=== PATIENT | female | born 1995 | race Caucasian/White ===

== ENCOUNTER → 2017-01-22 | Outpatient (CLI) | payer BC, MEDICAID ==
[~2017-01-22] MED LIST: SULF1TAB38 PO
--- NOTE | 2017-01-22 14:20 | Diagnostic Imaging Report ---
INDICATION: Size and dates. TECHNIQUE: Multiple real-time grayscale images were obtained over the gravid uterus. COMPARISON: None FINDINGS: There is a single living intrauterine in transverse presentation. The biometry correlates with a gestational age of 19 weeks 4 days. The placenta is anterior. There is no previa. The spine and cord insertion were not well visualized. The remainder of the anatomical survey is unremarkable. There is a normal volume of amniotic fluid. IMPRESSION: 1. Single living intrauterine with sonographically estimated gestational age of 19 weeks 4 days and estimated date of confinement of June 14, 2017. 2. Limited evaluation of the spine and cord insertion due to lie. Biometrical measurements are as follows: Biparietal 4.15 cm, age 18 weeks 5 days. Head circumference 16.83 cm, age 19 weeks 4 days. Abdominal circumference 14.23 cm, age 19 weeks 5 days. Femur length 3.13 cm, age 19 weeks 6 days. Sonographic estimate age: 19 weeks 4 days. Sonographic estimated date of delivery: 06/14/17. Estimated Weight: 302 gm (+/- 44 gm). LMP percentile: 09/06/17%. heart rate: 146 beats per minute. number: 1 of 1. Dictated by: Dictated on workstation # [id number]
== END ==
LOC: RAD 12:54
PROVIDERS: ATTEND Obstetrics & Gynecology
DX: Z36 Encounter for antenatal screening of mother (principal); Z3A.19 19 weeks gestation of pregnancy
CPT/HCPCS: 76805

== ENCOUNTER 2017-05-29 10:26 | Inpatient (IN) | payer BC, MEDICAID ==
[~2017-05-29] VITALS: Ht 154.9 cm; Wt 63.1 kg
[2017-05-29] VITALS (34 sets, daily range): BP systolic 107–156; BP diastolic 0–113
[2017-05-29] MEDS ORDERED: D5 LR IV SOLUTION 1,000 ML IV ONE (10:29)
[2017-05-29] MEDS ORDERED: D5 LR IV SOLUTION 1,000 ML IV SCH (10:33)
--- OUTSIDE RECORDS SUMMARY | 2017-05-29 10:36 | XMS REPORT ---
Author Author SEKOU TODD Organization [employer] Address Unknown Phone Unavailable Care Team Providers Care Glass Blower Helper Name Role Phone SEKOU TODD CP Unavailable Allergies, Adverse Reactions, Alerts Substance Reaction Event Type N.K.D.A. 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 Problem General counseling for initiation of other contraceptive measures V25.02 Active Problem Counseling on other sexually transmitted diseases V65.45 Active Problem Unspecified contraceptive management V25.9 Active Problem Acute sinusitis, unspecified 461.9 Active Medications Medication Code System Code Instructions Start Date End Date Status Dosage Flonase Allergy Relief [facility] [address]-78 50 MCG/ACT Nasally 2 times a day Jun 22, 2015 1 spray in each nostril Zyrtec Allergy [facility] [address]-02 10 MG Orally Once a day Jun 22, 2015 August 21, 2015 1 tablet Patanol [facility] [address]-26 0.1 % Ophthalmic Twice a day Jun 22, 2015 1 drop into affected eye Procedures Procedure Coding System Code Date Office Visit, Est Pt., Level 3 CPT-4 45031 Jun 22, 2015 Vital Signs Date/Time: Jun 22, 2015 Temperature 97.7 F Weight 103.9 lbs Height 62 in BMI 19.00 Index Blood Pressure Diastolic 72 mmHg Blood Pressure Systolic 108 mmHg Cardiac Monitoring Heart Rate 77 bpm BMIPercentile 17.75 % Wt Percentile 8.79 % Results No Known Results Summary Purpose [employer] Submission
--- OUTSIDE RECORDS SUMMARY | 2017-05-29 10:36 | XMS REPORT | Continuity of Care Document ---
Author Author [facility] Address Unknown Phone Unavailable Allergies There is no data. Medications There is no data. Problems Date Dx Coded Attending Type Code Diagnosis Diagnosed By 03/22/2010 CATINA LIRIANO DO V70.3 visit for: examination for sports competition 03/22/2010 CATINA LIRIANO DO V70.3 visit for: examination for sports competition 03/22/2010 MOHIT BLANCO APRN V70.3 visit for: examination for sports competition 03/22/2010 CATINA LIRIANO DO V70.3 visit for: examination for sports competition 03/22/2010 CATINA LIRIANO DO V70.3 visit for: examination for sports competition 03/22/2010 CATINA LIRIANO DO V70.3 visit for: examination for sports competition 03/22/2010 V70.3 visit for: examination for sports competition 03/22/2010 V70.3 visit for: examination for sports competition 03/22/2010 CATINA LIRIANO DO V70.3 visit for: examination for sports competition 03/22/2010 CATINA LIRIANO DO V70.3 visit for: examination for sports competition 04/26/2010 CATINA LIRIANO DO V03.89 MENINGOCOCCAL VACCINE 04/26/2010 CATINA LIRIANO DO V05.3 HEPATITIS A VACCINE 04/26/2010 CATINA ILRIANO DO V05.8 Need For Vaccination Human Papilloma Virus 04/26/2010 CATINA LIRIANO DO V06.5 DT, TETANUS-DIPHTHERIA [Td] ,TDAP 04/26/2010 CATINA LIRIANO DO V03.89 MENINGOCOCCAL VACCINE 04/26/2010 CATINA LIRIANO DO V05.3 HEPATITIS A VACCINE 04/26/2010 CATINA LIRIANO DO V05.8 Need For Vaccination Human Papilloma Virus 04/26/2010 CATINA LIRIANO DO V06.5 DT, TETANUS-DIPHTHERIA [Td] ,TDAP 04/26/2010 MOHIT BLANCO APRN V03.89 MENINGOCOCCAL VACCINE 04/26/2010 BELLA DE LA PAZNMOHIT L V05.3 HEPATITIS A VACCINE 04/26/2010 BELLA DE LA PAZNMOHIT L V05.8 Need For Vaccination Human Papilloma Virus 04/26/2010 MOHIT BLANCO APRN V06.5 DT, TETANUS-DIPHTHERIA [Td] ,TDAP 04/26/2010 CATINA LIRIANO DO V03.89 MENINGOCOCCAL VACCINE 04/26/2010 CATINA LIRIANO DO V05.3 HEPATITIS A VACCINE 04/26/2010 CATINA LIRIANO DO V05.8 Need For Vaccination Human Papilloma Virus 04/26/2010 CATINA LIRIANO DO V06.5 DT, TETANUS-DIPHTHERIA [Td] ,TDAP 04/26/2010 CATINA LIRIANO DO V03.89 MENINGOCOCCAL VACCINE 04/26/2010 CATINA LIRIANO DO V05.3 HEPATITIS A VACCINE 04/26/2010 CATINA LIRIANO DO V05.8 Need For Vaccination Human Papilloma Virus 04/26/2010 CATINA LIRIANO DO V06.5 DT, TETANUS-DIPHTHERIA [Td] ,TDAP 04/26/2010 CATINA LIRIANO DO V03.89 MENINGOCOCCAL VACCINE 04/26/2010 CATINA LIRIANO DO V05.3 HEPATITIS A VACCINE 04/26/2010 CATINA LIRIANO DO V05.8 Need For Vaccination Human Papilloma Virus 04/26/2010 CATINA LIRIANO DO V06.5 DT, TETANUS-DIPHTHERIA [Td] ,TDAP 04/26/2010 V03.89 MENINGOCOCCAL VACCINE 04/26/2010 V05.3 HEPATITIS A VACCINE 04/26/2010 V05.8 Need For Vaccination Human Papilloma Virus 04/26/2010 V06.5 DT, TETANUS- DIPHTHERIA [Td] ,TDAP 04/26/2010 V03.89 MENINGOCOCCAL VACCINE 04/26/2010 V05.3 HEPATITIS A VACCINE 04/26/2010 V05.8 Need For Vaccination Human Papilloma Virus 04/26/2010 V06.5 DT, TETANUS- DIPHTHERIA [Td] ,TDAP 04/26/2010 CATINA LIRIANO DO V03.89 MENINGOCOCCAL VACCINE 04/26/2010 LIRIANO DO, CATINA K V05.3 HEPATITIS A VACCINE 04/26/2010 DEANDRA DREW CATINA K V05.8 Need For Vaccination Human Papilloma Virus 04/26/2010 TIA LIRIANO DOA K V06.5 DT, TETANUS-DIPHTHERIA [Td] ,TDAP 04/26/2010 DEANDRA DREW CATINA K V03.89 MENINGOCOCCAL VACCINE 04/26/2010 DEANDRA DREW CATINA K V05.3 HEPATITIS A VACCINE 04/26/2010 DEANDRA DREW CATINA K V05.8 Need For Vaccination Human Papilloma Virus 04/26/2010 DEANDRA DREW CATINA K V06.5 DT, TETANUS-DIPHTHERIA [Td] ,TDAP 10/24/2010 DEANDRA DREW CATINA K V20.2 visit for: well child visit 10/24/2010 TIA LIRIANO DOA K V20.2 visit for: well child visit 10/24/2010 MOHIT BLANCO APRN V20.2 visit for: well child visit 10/24/2010 CATINA LIRIANO DO K V20.2 visit for: well child visit 10/24/2010 CATINA LIRIANO DO K V20.2 visit for: well child visit 10/24/2010 TIA LIRIANO DOA K V20.2 visit for: well child visit 10/24/2010 V20.2 visit for: well child visit 10/24/2010 V20.2 visit for: well child visit 10/24/2010 TIA LIRIANO DOA K V20.2 visit for: well child visit 10/24/2010 DEANDRA DREW CATINA K V20.2 visit for: well child visit 01/12/2011 DEANDRA DREW CATINA K 372.30 CONJUNCTIVITIS UNSPECIFIED 01/12/2011 DEANDRA DREW CATINA K 372.30 CONJUNCTIVITIS UNSPECIFIED 01/12/2011 MOHIT BLANCO APRN 372.30 CONJUNCTIVITIS UNSPECIFIED 01/12/2011 LIRIANO DO, CATINA K 372.30 CONJUNCTIVITIS UNSPECIFIED 01/12/2011 DEANDRA DREW, CATINA K 372.30 CONJUNCTIVITIS UNSPECIFIED 01/12/2011 LIRIANO DO, CATINA K 372.30 CONJUNCTIVITIS UNSPECIFIED 01/12/2011 372.30 CONJUNCTIVITIS UNSPECIFIED 01/12/2011 372.30 CONJUNCTIVITIS UNSPECIFIED 01/12/2011 DEANDRA DREW CATINA K 372.30 CONJUNCTIVITIS UNSPECIFIED 01/12/2011 LIRIANO DO, CATINA K 372.30 CONJUNCTIVITIS UNSPECIFIED 09/18/2011 CATINA LIRIANO DO K V25.02 CONTRACEPTION - ANY METHOD 09/18/2011 CATINA LIRIANO DO V65.45 STD COUNSELING 09/18/2011 CATINA LIRIANO DO K V25.02 CONTRACEPTION - ANY METHOD 09/18/2011 CATINA LIRIANO DO K V65.45 STD COUNSELING 09/18/2011 MOHIT BLANCO APRN V25.02 Contraceptives 09/18/2011 MOHIT BLANCO APRN V65.45 Anticipatory Guidance: Unsafe Sexual Practices 09/18/2011 CATINA LIRIANO DO K V25.02 Contraceptives 09/18/2011 CATINA LIRIANO DO K V65.45 Anticipatory Guidance: Unsafe Sexual Practices 09/18/2011 CATINA LIRIANO DO K V25.02 Contraceptives 09/18/2011 CATINA LIRIANO DO K V65.45 Anticipatory Guidance: Unsafe Sexual Practices 09/18/2011 CATINA LIRIANO DO K V25.02 Contraceptives 09/18/2011 CATINA LIRIANO DO V65.45 Anticipatory Guidance: Unsafe Sexual Practices 09/18/2011 V25.02 Contraceptives 09/18/2011 V65.45 Anticipatory Guidance: Unsafe Sexual Practices 09/18/2011 V25.02 Contraceptives 09/18/2011 V65.45 Anticipatory Guidance: Unsafe Sexual Practices 09/18/2011 CATINA LIRIANO DO K V25.02 Contraceptives 09/18/2011 CATINA LIRIANO DO K V65.45 Anticipatory Guidance: Unsafe Sexual Practices 09/18/2011 CATINA LIRIANO DO K V25.02 Contraceptives 09/18/2011 CATINA LIRIANO DO V65.45 Anticipatory Guidance: Unsafe Sexual Practices 06/17/2013 CATINA LIRIANO DO 461.9 SINUSITIS ACUTE 06/17/2013 MOHIT BLANCO APRN 461.9 SINUSITIS ACUTE 06/17/2013 CATINA LIRIANO DO 461.9 SINUSITIS ACUTE 06/17/2013 CATINA LIRIANO DO 461.9 SINUSITIS ACUTE 06/17/2013 LIRIANO CATINA DREW K 461.9 SINUSITIS ACUTE 06/17/2013 461.9 SINUSITIS ACUTE 06/17/2013 461.9 SINUSITIS ACUTE 06/17/2013 CATINA LIRIANO DO 461.9 SINUSITIS ACUTE 06/17/2013 CATINA LIRIANO DO 461.9 SINUSITIS ACUTE 06/25/2013 MOHIT BLANCO APRN V04.89 GARDASIL (HPV) DX 06/25/2013 CATINA LIRIANO DO V04.89 GARDASIL (HPV) DX 06/25/2013 LIRIANO CATINA DREW V04.89 GARDASIL (HPV) DX 06/25/2013 LIRIANO CATINA DREW V04.89 GARDASIL (HPV) DX 06/25/2013 V04.89 GARDASIL (HPV ) DX 06/25/2013 V04.89 GARDASIL (HPV ) DX 06/25/2013 CATINA LIRIANO DO V04.89 GARDASIL (HPV) DX 06/25/2013 CATINA LIRIANO DO V04.89 GARDASIL (HPV) DX 10/30/2013 CATINA LIRAINO DO 692.2 CONTACT DERMATITIS AND OTHER ECZEMA DUE TO SOLVENTS 10/30/2013 692.2 CONTACT DERMATITIS AND OTHER ECZEMA DUE TO SOLVENTS 10/30/2013 692.2 CONTACT DERMATITIS AND OTHER ECZEMA DUE TO SOLVENTS 10/30/2013 CATINA LIRIANO DO 692.2 CONTACT DERMATITIS AND OTHER ECZEMA DUE TO SOLVENTS 10/30/2013 CATINA LIRIANO DO 692.2 CONTACT DERMATITIS AND OTHER ECZEMA DUE TO SOLVENTS 02/02/2014 V74.1 TB SCREENING 02/02/2014 V74.1 TB SCREENING 02/02/2014 CATINA LIRIANO DO V74.1 TB SCREENING 02/02/2014 CATINA LIRIANO DO V74.1 TB SCREENING 03/10/2014 CATINA LIRIANO DO V04.81 FLU SHOT 03/10/2014 CATINA LIRIANO DO V25.9 UNSPECIFIED CONTRACEPTIVE MANAGEMENT 03/10/2014 CATINA LIRIANO DO V04.81 FLU SHOT 03/10/2014 CATINA LIRIANO DO V25.9 UNSPECIFIED CONTRACEPTIVE MANAGEMENT Procedures Code [place] [address] TEST, URINE (IN- HOUSE) 06/25/2013 J1050 DEPO PROVERA 06/25/2013 73431 THERAPUTIC INJ SQ/IM 06/25/2013 87192 THERAPUTIC INJ SQ/IM 09/17/2013 J1050 DEPO PROVERA 09/17/2013 78326 TEST, URINE (IN- HOUSE) 09/17/2013 71545 STREP A (IN-HOUSE) 10/30/2013 20505 TB TEST INTRADERMAL 02/08/2014 62452 TB TEST INTRADERMAL 02/16/2014 79540 THERAPUTIC INJ SQ/IM 03/10/2014 J1050 DEPO PROVERA 03/10/2014 92971 TEST, URINE (IN- HOUSE) 03/10/2014 96981 THERAPUTIC INJ SQ/IM 07/07/2014 J1050 DEPO PROVERA 07/07/2014 51722 TEST, URINE (IN- HOUSE) 07/07/2014 Results There is no data. Encounters ACCT No. Visit Date/Time Discharge Status Pt. Type Provider Facility Loc./Unit Complaint [id number] 07/07/2014 15:14:00 07/07/2014 23:59:59 CLS Outpatient CATINA LIRIANO DO [id number] 03/10/2014 13:42:00 03/10/2014 23:59:59 CLS Outpatient CATINA LIRIANO DO [id number] 02/09/2014 14:10:00 02/09/2014 23:59:59 CLS Outpatient [id number] 02/02/2014 18:14:00 02/02/2014 23:59:59 CLS Outpatient [id number] 10/30/2013 08:16:00 10/30/2013 23:59:59 CLS Outpatient CATINA LIRIANO DO [id number] 09/17/2013 08:37:00 09/17/2013 23:59:59 CLS Outpatient CATINA LIRIANO DO [id number] 09/08/2013 10:10:00 09/08/2013 23:59:59 CLS Outpatient CATINA LIRIANO DO [id number] 06/25/2013 15:10:00 06/25/2013 23:59:59 CLS Outpatient MOHIT BLANCO APRN Aly [id number] 06/17/2013 09:46:00 06/17/2013 23:59:59 CLS Outpatient CATINA LIRIANO DO [id number] 04/07/2013 13:56:00 04/07/2013 23:59:59 CLS Outpatient CATINA LIRIANO DO
--- OUTSIDE RECORDS SUMMARY | 2017-05-29 10:36 | XMS REPORT ---
Author Author MARY ALVAREZ [facility] Address [address] [place] [address] Care Team Providers Care Healthcare Facility Administrator Name Role Phone MARY ALVAREZ Unavailable PROBLEMS Type Condition ICD9-CM Code KYU02-HG Code Onset Dates Condition Status SNOMED Code Assessment Acute mucoid otitis media of right ear H65.111 Jan, Active [id number] Assessment Allergic rhinitis, unspecified allergic rhinitis trigger, unspecified rhinitis seasonality J30.9 Jan, Active [id number] ALLERGIES Substance Reaction Event Type Date Status N.K.D.A. Unknown Non Drug Allergy Jan, Unknown SOCIAL HISTORY No smoking Hx information available PLAN OF CARE VITAL SIGNS Height 62 in 2016-02-13 Weight 100.3 lbs 2016-02-13 Heart Rate 98 bpm 2016-02-13 Respiratory Rate 18 2016-02-13 BMI 18.34 kg/m2 2016-02-13 Blood pressure systolic 98 mmHg 2016-02-13 Blood pressure diastolic 60 mmHg 2016-02-13 MEDICATIONS Medication Instructions Dosage Frequency Start Date End Date Duration Status Augmentin 875-125 MG Orally every 12 hrs 1 tablet 12h Jan,Jan 10 day(s) Active Cetirizine HCl 10 mg 1 tablet Jan, Active RESULTS No Results PROCEDURES Procedure Date Ordered Related Diagnosis Body Site Office Visit, Est Pt., Level 3 Feb 13, 2016 IMMUNIZATIONS No Known Immunizations
--- NOTE | 2017-05-29 10:39 | History & Physical-OB ---
OB - Chief Complaint & HPI Date/Time Date of Admission: Date of Admission: May 29, 2017 at 10:26 Time Seen by Provider: 10:35 Chief Complaint/History OB-Reason for Admission/Chief: Onset of Labor Hx : 1 Hx Para: 0 Expected Date of Delivery: Jun 13, 2017 Gestational Age in Weeks: 37 Gestational Age in Days: 6 Admission Nurse Assessment Rev: Yes History of Labs A pos Antibody neg RI RPR NR HBsAg NR HIV NR GC neg GBS neg Allergies and Home Medications Allergies Coded Allergies: No Known Drug Allergies (Unverified , 08/23/12) Home Medications Trimethoprim/Sulfamethoxazole 1 Ea Tablet, 1 EA PO BID, #20 FOR INFECTION Prescribed by: FREDDIE MITCHELL on 08/23/12 1529 OB - History Hx of Present Care: Yes Ultrasounds: Normal mid trimester US Obstetrical Complications: None Medical Complications: None Patient Past Medical History n/a Immunizations Tetanus Booster (TDap): Less than 5yrs OB - Admission Exam Physical Exam HEENT: NCAT Heart: Rhythm Normal Lungs: Clear Abdomen: Gravid Extremities: Normal Reflexes: Normal Cervical Dilatation: 6cm Effacement: 75% Station: -1 Membranes: Intact Heart Rate: 130's Accelerations: Accelerations Present Decelerations: No Decelerations Short Term Variability: Present Half-Way Variability: Average (6-25) Contractions on Admission: 6-10 Minutes Apart Intensity: Firm OB - Assessment/Plan/Diagnosis Assessment Assessment: active labor Plan Plan: Expectant Management Other Plan Expectant management, patient to have epidural at request. Discharge Diagnosis Diagnosis: 22 yo @ 37.6 Active labor GBS neg MARIA FERNANDA BLAIR DO May 29, 2017 10:39
[2017-05-29] MEDS ORDERED: LACTATED RINGERS 1,000 ML IV ONE (10:54)
[2017-05-29 11:06] LABS: BASOPHILS % (AUTO) 0 % (0-10); EOSINOPHILS # (AUTO) 0.1 10^3/uL (0.0-0.3); EOSINOPHILS % (AUTO) 1 % (0-10); HEMATOCRIT 42 % (35-52); HEMOGLOBIN 14.2 G/DL (11.5-16.0); LYMPHOCYTES # (AUTO) 2.2 X 10^3 (1.0-4.0); LYMPHOCYTES % (AUTO) 20 % (12-44); MEAN CORPUSCULAR HEMOGLOBIN 31 PG (25-34); MEAN CORPUSCULAR HGB CONC 34 G/DL (32-36); MEAN CORPUSCULAR VOLUME 90 FL (80-99); MEAN PLATELET VOLUME 11.1 FL (7.4-10.4); MONOCYTES # (AUTO) 0.6 X 10^3 (0.0-1.0); MONOCYTES % (AUTO) 6 % (0-12); NEUTROPHILS % (AUTO) 73 % (42-75); PLATELET COUNT 265 10^3/uL (130-400); RED BLOOD COUNT 4.65 10^6/uL (4.35-5.85); RED CELL DISTRIBUTION WIDTH 12.8 % (10.0-14.5); WHITE BLOOD COUNT 10.9 10^3/uL (4.3-11.0)
[2017-05-29] MEDS ORDERED: SUFENTA 0.6MCG/ML BUPIVA 0.125 100 ML ONE ×2 (11:35→12:19)
[2017-05-29] MEDS ORDERED: LACTATED RINGERS 1,000 ML IV SCH (12:11)
[2017-05-29] MEDS ORDERED: diphenhydrAMINE 50 MG/ML INJ (BENADRYL) IV PRN (12:15)
[2017-05-29] MEDS ORDERED: METOCLOPRAMIDE INJ 10 MG/2 ML (REGLAN) IV PRN (12:15)
[2017-05-29] MEDS ORDERED: NALOXONE 0.4 MG/ML 1 ML (NARCAN) VIAL IV PRN ×2 (12:15)
[2017-05-29] MEDS ORDERED: EPIDURAL (SUFENTA 0.6MCG/ML BUPIVA 0.125%) 100 ML BAG EPI SCH (12:15)
[2017-05-29] MEDS ORDERED: ONDANSETRON 4 MG/2 ML (SDV) Z0FRAN IV PRN (12:15)
[2017-05-29] MEDS ORDERED: LIDOCAINE/EPI 2% 1:200,00 (XYLOCAINE) 10 ML VIAL ONE (13:57)
[2017-05-29] MEDS ORDERED: MINERAL OIL CONCENTRATE 99.9% 15 ML UDC ONE (13:57)
[2017-05-29] MEDS ORDERED: CATHETER FLUSH 10 ML SYR IV SCH ×2 (14:00→22:00)
[2017-05-29] MEDS ORDERED: OXYTOCIN/NORMAL SALINE 1,000 ML IV ONE (14:19)
[2017-05-29] MEDS: OXYTOCIN/NORMAL SALINE 500 ML IV SCH ×2 (14:35→15:14)
[2017-05-29] MEDS ORDERED: MEPIVACAINE (CARBOCAINE) 2% 20 ML VIAL ONE (15:10)
[2017-05-29] MEDS ORDERED: MEASLES,MUMPS,RUBELLA 1 EA INJ SQ ONE (15:30)
[2017-05-29] MEDS ORDERED: TETANUS,DIPTH,PERTUSS P/F (BOOSTRIX) 0.5 ML VIAL IM ONE (15:30)
[2017-05-29] MEDS ORDERED: DIBUCAINE (NUPERCAINAL) 1% OINT 30 GM TOP PRN (15:30)
[2017-05-29] MEDS ORDERED: BENZOCAINE/MENTHOL (DERMOPLAST) 56 ML CAN TP PRN (15:30)
[2017-05-29] MEDS ORDERED: WITCH HAZEL(TUCKS) 40 EA JAR TOP PRN (15:30)
--- NOTE | 2017-05-29 15:36 | OB Labor & Delivery Record ---
L&D History Date of Service Date of Service: May 29, 2017 History Expected Date of Delivery: Jun 13, 2017 Gestational Age in Weeks: 37 Hx : 1 Hx Para: 0 Complications Events: Routine care Operative Indications (Cesarea: N/A-Vaginal Delivery Intrapartal Events: None L&D Stage1 Stage One Onset of Labor - Date: May 29, 2017 Monitors and Tracing Monitor Mode: Internal Heart Rate: 140 Monitor Accelerations: Uniform Monitor Decelerations: Variable Station: -2 Residential Variability: Moderate (11-25) Short Term Variability: Present Presentation: Vertex Rupture of Membranes Spontaneous Ruture of Membrane: No Amniotic Membrane Rupture Time: 12:45 Amniotic Membrane Fluid Desc.: Clear Amniotic Fluid Membrane Tests: Nitrazine Positive Vaginal Bleeding Description: Normal Show Induction/Anesthesia Epidural Cath Placement - Time: 11:30 L&D Stage2 Stage Two Stage II Date: May 29, 2017 Monitors and Tracing Monitor Mode: External Heart Rate: 130 Monitor Decelerations: Variable Ice Plant Operator Variability: Minimal (3-5) Short Term Variability: Present Position: Right Occiput Anterior Presentation: Vertex Cord Descript/Complications Cord Vessel Description: 3 Vessels Delivery Type Infant Delivery Method: Spontaneous Vaginal Episiotomy/Perineal Laceration Laceraction(s)/Extensions: Yes Episiotomy Description: Right Mediolateral (RML repaired using 3-0 and 2-0 vicryl suture in usual fashion) Condition of Infant Delivery 1 minute Comment: 8 5 minute Comment: 8 Notes Live female infant weight 4lbs 5 oz Condition of Infant Condition of Infant: Living Exam: No Observed Abnormalities Resuscitation Resuscitation: N/A - Spontaneous Resp L&D Stage3 Stage Three Stage III Date: May 29, 2017 Pictocin Pitocin Administration Comment: wide open 2 30mu bags if iv pitocin given at delivery of placenta Placenta Delivery Placenta Delivery: Spontaneous Delivery Summary Summary Estimated blood loss (mL): 250 250 ml Attending at delivery: Maria Fernanda Blair DO Condition of Delivery Examined: Cervix Examined, Uterus Explored Post Hemorrhage: No Condition of Mother stable Condition of Infant (s) stable MARIA FERNANDA BLAIR DO May 29, 2017 15:36
[2017-05-29] MEDS: IBUPROFEN 600 MG (MOTRIN) TAB PO SCH ×2 (17:10→23:30)
[2017-05-29] MEDS: DOCUSATE SODIUM 100 MG (COLACE) CAP PO SCH (21:28)
[2017-05-29] MEDS: HYDROcodone/APAP 5 MG/325 MG (LORTAB) TAB PO PRN (21:49)
[2017-05-30] VITALS: BP 131/84
[2017-05-30] MEDS: HYDROcodone/APAP 5 MG/325 MG (LORTAB) TAB PO PRN ×4 (03:50→21:26)
[2017-05-30 03:56] VITALS: BP 113/76
[2017-05-30] MEDS: IBUPROFEN 600 MG (MOTRIN) TAB PO SCH ×3 (05:45→18:30)
[2017-05-30 06:14] LABS: BASOPHILS % (AUTO) 0 % (0-10); EOSINOPHILS # (AUTO) 0.2 10^3/uL (0.0-0.3); EOSINOPHILS % (AUTO) 1 % (0-10); HEMATOCRIT 36 % (35-52); HEMOGLOBIN 12.1 G/DL (11.5-16.0); LYMPHOCYTES # (AUTO) 3.1 X 10^3 (1.0-4.0); LYMPHOCYTES % (AUTO) 26 % (12-44); MEAN CORPUSCULAR HEMOGLOBIN 31 PG (25-34); MEAN CORPUSCULAR HGB CONC 34 G/DL (32-36); MEAN CORPUSCULAR VOLUME 92 FL (80-99); MEAN PLATELET VOLUME 11.3 FL (7.4-10.4); MONOCYTES # (AUTO) 0.6 X 10^3 (0.0-1.0); MONOCYTES % (AUTO) 5 % (0-12); NEUTROPHILS # (AUTO) 8.1 X 10^3 (1.8-7.8); NEUTROPHILS % (AUTO) 67 % (42-75); PLATELET COUNT 185 10^3/uL (130-400); RED BLOOD COUNT 3.93 10^6/uL (4.35-5.85); RED CELL DISTRIBUTION WIDTH 12.5 % (10.0-14.5)
[2017-05-30] MEDS ORDERED: PRENATAL VITAMIN 1 EA TAB PO SCH (07:00)
--- NOTE | 2017-05-30 08:31 | Discharge Inst-Women's Service ---
Discharge Inst-Women's Serv Depart Medication/Instructions New, Converted or Re-Newed RX: RX on Chart Consults/Follow Up Additional Follow Up: Yes Orders/Referrals Dr. Blair in 6 weeks Activity Activity: Activity as Tolerated Driving Instructions: No Driving for 1 Week NO SMOKING: NO SMOKING Nothing Inside Vagina: No Douching, No Gallant, No Tampons Diet Discharge Diet: No Restrictions Symptoms to Report to : Bleeding Excessive, Pain Increased, Fever Over 101 Degrees F, Vaginal Bleeding Increase, Questions/Concerns For Any Problems or Questions: Contact Your Physician Skin/Wound Care Bathing Instructions: Shower (x 2 weeks for sitz baths) MARIA FERNANDA BLAIR DO May 30, 2017 8:31 am
[2017-05-30] MEDS ORDERED: FERR-74 PO (08:33)
[2017-05-30] MEDS ORDERED: Benzocaine/Menthol TP (08:33)
[2017-05-30] MEDS ORDERED: IBUP-1773 PO (08:33)
[2017-05-30] MEDS ORDERED: ACHD5005 PO (08:33)
[2017-05-30] MEDS ORDERED: DOCU100C37 PO (08:33)
[2017-05-30 09:56] VITALS: BP 129/87
[2017-05-30] MEDS: FERROUS SULF 325 MG (IRON) TAB PO SCH (09:56)
[2017-05-30] MEDS: DOCUSATE SODIUM 100 MG (COLACE) CAP PO SCH ×2 (09:56→21:25)
--- NOTE | 2017-05-30 14:34 | Anesthesia-Regional Post-Op ---
Regional Patient Condition Mental Status: Alert, Oriented x3 Circulation: Same as Pre-Op Headache: Absent Sensation: Full Recovery Motor Block: Absent Post Op Complications Complications None Follow Up Care/Instructions Patient Instructions None needed. Anesthesia/Patient Condition Patient is doing well, no complaints, stable vital signs, no apparent adverse anesthesia problems. No complications reported per nursing. GENNA BEAVERS CRNA May 30, 2017 14:34
[2017-05-30 15:30] VITALS: BP 115/2
[2017-05-30] MEDS ORDERED: INFLUENZA TRIvalent 2017-2018 0.5 ML/45 MCG SYR IM ONE (17:30)
--- NOTE | 2017-05-30 18:32 | Progress Note-Standard ---
Standard Progress Note Progress Notes/Assess & Plan Date Seen by Provider: May 30, 2017 Time Seen by Provider: 07:30 Progress/Assessment & Plan Patient doing well, no concerns voiced. Pain well controlled, ambulating and voiding freely. Vital Sign - Last 24 Hours 05/29/17 05/30/17 05/30/17 05/30/17 20:00 00:00 03:56 09:56 Temp 98.0 98.0 98.0 97.9 Pulse 73 86 70 102 Resp 18 18 16 18 B/P (MAP) 125/78 (94) 131/84 (100) 113/76 (88) 129/87 (101) Pulse Ox 98 O2 Delivery Room Air Room Air Room Air Room Air 05/30/17 15:30 Temp 97.7 Pulse 90 Resp 18 B/P (MAP) 115/2 (39) Pulse Ox 98 O2 Delivery Room Air Intake and Output 05/29/17 05/29/17 05/30/17 15:00 23:00 07:00 Intake Total 250 ml Balance 250 ml Uterine fundus firm and palpated below umbilicus Laboratory Tests Test 05/30/17 05:35 Range/Units White Blood Count 12.0 H 4.3-11.0 10^3/uL Red Blood Count 3.93 L 4.35-5.85 10^6/uL Hemoglobin 12.1 11.5-16.0 G/DL Hematocrit 36 35-52 % Mean Corpuscular Volume 92 80-99 FL Mean Corpuscular Hemoglobin 31 25-34 PG Mean Corpuscular Hemoglobin Concent 34 32-36 G/DL Red Cell Distribution Width 12.5 10.0-14.5 % Platelet Count 185 130-400 10^3/uL Mean Platelet Volume 11.3 H 7.4-10.4 FL Neutrophils (%) (Auto) 67 42-75 % Lymphocytes (%) (Auto) 26 12-44 % Monocytes (%) (Auto) 5 0-12 % Eosinophils (%) (Auto) 1 0-10 % Basophils (%) (Auto) 0 0-10 % Neutrophils # (Auto) 8.1 H 1.8-7.8 X 10^3 Lymphocytes # (Auto) 3.1 1.0-4.0 X 10^3 Monocytes # (Auto) 0.6 0.0-1.0 X 10^3 Eosinophils # (Auto) 0.2 0.0-0.3 10^3/uL Basophils # (Auto) 0.0 0.0-0.1 10^3/uL Diagnosis: PPD 1 NVD P: Anticipate dc tomorrow Continue routine pp care MARIA FERNANDA BLAIR DO May 30, 2017 6:32 pm
[2017-05-30 21:15] VITALS: BP 116/77
[2017-05-31 02:35] VITALS: BP 109/69
[2017-05-31] MEDS: IBUPROFEN 600 MG (MOTRIN) TAB PO SCH ×3 (02:42→17:17)
[2017-05-31] MEDS: HYDROcodone/APAP 5 MG/325 MG (LORTAB) TAB PO PRN ×3 (02:43→17:17)
[2017-05-31 09:13] VITALS: BP 126/82
[2017-05-31] MEDS: FERROUS SULF 325 MG (IRON) TAB PO SCH (09:13)
[2017-05-31] MEDS: DOCUSATE SODIUM 100 MG (COLACE) CAP PO SCH (09:13)
--- NOTE | 2017-05-31 09:18 | Progress Note-Standard ---
Standard Progress Note Progress Notes/Assess & Plan Date Seen by Provider: May 31, 2017 Time Seen by Provider: 08:35 Progress/Assessment & Plan Patient doing well, no concerns voiced. Pain well controlled, ambulating and voiding freely. Vital Sign - Last 24 Hours 05/30/17 05/30/17 05/30/17 05/31/17 09:56 15:30 21:15 02:35 Temp 97.9 97.7 98.4 97.6 Pulse 102 90 95 87 Resp 18 18 16 B/P (MAP) 129/87 (101) 115/2 (39) 116/77 (90) 109/69 (82) Pulse Ox 98 98 99 98 O2 Delivery Room Air Room Air Room Air Room Air Uterine fundus firm and palpated below umbilicus Laboratory Tests Test 05/30/17 05:35 Range/Units White Blood Count 12.0 H 4.3-11.0 10^3/uL Red Blood Count 3.93 L 4.35-5.85 10^6/uL Hemoglobin 12.1 11.5-16.0 G/DL Hematocrit 36 35-52 % Mean Corpuscular Volume 92 80-99 FL Mean Corpuscular Hemoglobin 31 25-34 PG Mean Corpuscular Hemoglobin Concent 34 32-36 G/DL Red Cell Distribution Width 12.5 10.0-14.5 % Platelet Count 185 130-400 10^3/uL Mean Platelet Volume 11.3 H 7.4-10.4 FL Neutrophils (%) (Auto) 67 42-75 % Lymphocytes (%) (Auto) 26 12-44 % Monocytes (%) (Auto) 5 0-12 % Eosinophils (%) (Auto) 1 0-10 % Basophils (%) (Auto) 0 0-10 % Neutrophils # (Auto) 8.1 H 1.8-7.8 X 10^3 Lymphocytes # (Auto) 3.1 1.0-4.0 X 10^3 Monocytes # (Auto) 0.6 0.0-1.0 X 10^3 Eosinophils # (Auto) 0.2 0.0-0.3 10^3/uL Basophils # (Auto) 0.0 0.0-0.1 10^3/uL Diagnosis: PPD 2 NVD P: Anticipate dc today Continue routine pp care PP precautions reviewed MARIA FERNANDA BLAIR DO May 31, 2017 9:18 am
[2017-05-31 17:17] VITALS: BP 127/85
== END 2017-05-31 17:17 | disposition home or self-care (01) | DRG 775 ==
LOC: LDRP 10:26
PROVIDERS: ADMIT Obstetrics & Gynecology; ATTEND Obstetrics & Gynecology
PROC: 10E0XZZ Delivery of Products of Conception, External Approach (ICD-10-PCS; principal; 2017-05-29)
PROC: 0W8NXZZ Division of Female Perineum, External Approach (ICD-10-PCS; 2017-05-29)
DX: O80 Encounter for full-term uncomplicated delivery (principal); Z37.0 Single live birth; Z3A.37 37 weeks gestation of pregnancy
CPT/HCPCS: 36415; 85025; 86850; 86900; 86901

== ENCOUNTER 2018-12-18 18:39 | Emergency (ER) | payer MEDICAID ==
[~2018-12-18] VITALS: Ht 154.9 cm; Wt 59.0 kg
[~2018-12-18 18:39] MED LIST changes: +ACHD5005 PO; +Benzocaine/Menthol TP; +DOCU100C37 PO; +FERR325T18 PO; +IBUP-1773 PO
[2018-12-18] MEDS ORDERED: AMOXICILLIN 500 MG (POLYMOX) CAP PO STA (18:54)
[2018-12-18] MEDS ORDERED: AMOX500C2 PO (18:58)
--- NOTE | 2018-12-18 18:58 | ED EENT ---
History of Present Illness General Chief Complaint: Dental Problems/Pain Stated Complaint: DENTAL PAIN Nursing Triage Note: ERIBERTO STATES THAT SHE KNEW SHE HAD A CAVITY BUT TODAY SHE STARTED HAVING RED AND PAINFUL GUMS. SHE CALLED HER DDS BUT THEY ARE OUT OF TOWN. SHE WAS TOLD TO COME TO THE ER TO GET STARTED ON ANTIBIOTICS. Source: patient Exam Limitations: no limitations History of Present Illness Date Seen by Provider: Dec 18, 2018 Time Seen by Provider: 18:56 Initial Comments To ER with left lower dental pain getting worse for the past few days. Her dentist, Dr. Singh is out of town until Saturday. Patient is breast-feeding. Timing/Duration: abrupt Severity: moderate Location: dental Associated Symptoms: tooth pain Allergies and Home Medications Allergies Coded Allergies: No Known Drug Allergies (Unverified , 08/23/12) Home Medications Docusate Sodium 100 Mg Capsule, 100 MG PO BID PRN for CONSTIPATION-1ST LINE Prescribed by: MARIA FERNANDA BLAIR on 05/30/17832 Ferrous Sulfate 325 Mg Tablet, 325 MG PO DAILY@0800 Prescribed by: MARIA FERNANDA BLAIR on 05/30/17832 Hydrocodone Bit/Acetaminophen 1 Tab Tab, 1-2 TAB PO Q4H PRN for PAIN-MODERATE Prescribed by: MARIA FERNANDA BLAIR on 05/30/17832 Ibuprofen 600 Mg Tablet, 600 MG PO Q6H Prescribed by: MARIA FERNANDA BLAIR on 05/30/17832 Trimethoprim/Sulfamethoxazole 1 Ea Tablet, 1 EA PO BID FOR INFECTION Prescribed by: FREDDIE MITCHELL on 08/23/12 1529 [Benzocaine/Menthol] 1 AEROSOL, 0 ML TP UD PRN for PAIN- SEE INSTRUCTIONS EXTERNAL USE ONLY Prescribed by: MARIA FERNANDA BLAIR on 05/30/17832 Patient Home Medication List Home Medication List Reviewed: Yes Review of Systems Review of Systems Constitutional: see HPI Eyes: No Symptoms Reported Ears: No Symptoms Reported Nose: no symptoms reported Mouth: see HPI, pain Throat: no symptoms reported Respiratory: no symptoms reported Cardiovascular: no symptoms reported Musculoskeletal: no symptoms reported Past Ckciyze-Ynueyy-Nkhaiw Hx Patient Social History Alcohol Use: Denies Use Recreational Drug Use: No Smoking Status: Never a Smoker 2nd Hand Smoke Exposure: No Recent Foreign Travel: No Contact w/Someone Who Travel: No Recent Infectious Disease Expo: No Recent Hopitalizations: No Immunizations Up To Date Tetanus Booster (TDap): Less than 5yrs Seasonal Allergies Seasonal Allergies: No Past Medical History Surgeries: No Respiratory: No Cardiac: No Neurological: No Genitourinary: No Gastrointestinal: No Musculoskeletal: No Endocrine: No HEENT: No Cancer: No Psychosocial: No Integumentary: No Blood Disorders: No Adverse Reaction/Blood Tranf: No Family Medical History Patient reports no known family medical history. Physical Exam Vital Signs Vital Signs - First Documented 12/18/18 18:45 Temp 97.9 Pulse 74 Resp 18 Pulse Ox 99 Height, Weight, BMI Height: 5'1.00" Weight: 130lbs. 0oz. 58.183084lc; 26.3 BMI Method:Stated General Appearance: WD/WN, no apparent distress Eyes: bilateral eye normal inspection, bilateral eye PERRL, bilateral eye EOMI Ears: bilateral ear auricle normal, bilateral ear canal normal, bilateral ear TM normal Neck: non-tender, full range of motion Respiratory: no respiratory distress, no accessory muscle use Neurologic/Psychiatric: alert, normal mood/affect, oriented x 3 Skin: normal color, warm/dry Progress/Results/Core Measures Results/Orders My Orders Orders - NANCY BARRETT APRN Amoxicillin Capsule (Polymox Capsule) (12/18/18 18:54) Vital Signs/I&O 12/18/18 18:45 Temp 97.9 Pulse 74 Resp 18 B/P (MAP) Pulse Ox 99 Departure Communication (Admissions) No fluctuant abscess, no mandibular swelling, no lymphadenopathy palpable. Impression Primary Impression: Dental caries Disposition: 01 HOME, SELF-CARE Condition: Stable Departure-Patient Inst. Decision time for Depature: 18:57 Referrals: NO,LOCAL PHYSICIAN (PCP/Family) Primary Care Physician Patient Instructions: Dental Pain (DC) Add. Discharge Instructions: 1. Return to ER for any concerns 2. Follow-up next week 3. All discharge instructions reviewed with patient and/or family. Voiced un derstanding. Scripts Amoxicillin (Amoxicillin) 500 Mg Capsule 500 MG PO TID, #21 CAP 0 Refills Prov: NANCY BARRETT APRN 12/18/18 NANCY BARRETT APRN Dec 18, 2018 18:58
[2018-12-18 19:00] VITALS: BP 0/0
--- OUTSIDE RECORDS SUMMARY | 2018-12-18 20:06 | XMS REPORT ---
Author Author Migration, Doctor Organization [facility] Address Unknown Phone Unavailable Care Team Providers Care Freight Coordinator Name Role Phone Migration, Doctor Unavailable Unavailable PROBLEMS Unknown Problems ALLERGIES No Information ENCOUNTERS Encounter Location Date Diagnosis [address] [id number] [id number] Jan, Acute mucoid otitis media of right ear H65.111 and Allergic rhinitis, unspecified allergic rhinitis trigger, unspecified rhinitis seasonality J30.9 [facility] [address] [place] [address] [id number] [id number] May, Allergic conjunctivitis H10.10 ; Post-nasal drip R09.82 and Rhinitis J31.0 [facility] [id number] [place] [address] Aug, [facility] [id number] [place] [address] Aug, [facility] [id number] [place] [address] Jun, [facility] [address] [address] Jun, [facility] [id number] [place] [address] Feb, [facility] [id number] [place] [address] Feb, [facility] [id number] [place] [address] Jan, [facility] [id number] [place] [address] Jan, [facility] [id number] [place] [address] [place] [address] 16 Jan, 2014 [facility] [place] [facility] [address] [id number] [place] [address] 16 Jan, 2014 [facility] [place] [facility] [address] [id number] [place] [address] 15 Jan, 2014 [facility] [place] [facility] [address] [id number] [place] [address] 15 Jan, 2014 [facility] [place] [facility] [address] [id number] [place] [address] 09 Jan, 2014 [facility] [place] [facility] [address] [id number] [place] [address] Jan, [facility] [place] [facility] [address] [id number] [place] [address] Oct, [facility] [address] [id number] [place] [address] Oct, [facility] [place] [facility] [address] [id number] [place] [address] Aug, [facility] [address] [id number] [place] [address] Aug, [facility] [address] [id number][place] [id number] Aug, [facility] [place] [facility] [address] [id number] [place] [address] Aug, [facility] [place] [facility] [address] [id number] [place] [address] May, [facility] [place] [facility] [address] [id number] [place] [address] May, [facility] [place] [facility] [address] [id number] [place] [address] May, [facility] [place] [facility] [address] [id number] [place] [address] May, [facility] [place] [facility] [address] [address] May, [facility] [address] [address] May, [facility] [address] [address] Mar, [facility] [address] [address] Mar, [facility] [address] [address] Aug, [facility] [address] [address] Dec, [facility] [address] [address] Apr, [facility] [address] [address] Feb, IMMUNIZATIONS No Known Immunizations SOCIAL HISTORY Never Assessed [place] [place] VITAL SIGNS MEDICATIONS No Known Medications RESULTS No Results PROCEDURES No Known procedures INSTRUCTIONS MEDICATIONS ADMINISTERED No Known Medications
--- OUTSIDE RECORDS SUMMARY | 2018-12-18 20:06 | XMS REPORT ---
Author Author Migration, Doctor Organization [facility] Address Unknown Phone Unavailable Care Team Providers Care Soil Technician Name Role Phone Migration, Doctor Unavailable Unavailable PROBLEMS Unknown Problems ALLERGIES No Information ENCOUNTERS Encounter Location Date Diagnosis [address] [id number][place] [id number] Jan, Acute mucoid otitis media of right ear H65.111 and Allergic rhinitis, unspecified allergic rhinitis trigger, unspecified rhinitis seasonality J30.9 [facility] [address] [place] [address] [id number][place] [id number] May, Allergic conjunctivitis H10.10 ; Post-nasal drip R09.82 and Rhinitis J31.0 [facility] [address] [place] [address] Aug, [facility] [id number] [place] [address] Aug, [facility] [id number] [place] [address] Jun, [facility] [address] [address] Jun, [facility] [id number] [place] [address] Feb, [facility] [address] [place] [address] Feb, [facility] [id number] [place] [address] Jan, [facility] [id number] [place] [address] Jan, [facility] [id number] [place] [address] [place] [address] 16 Jan, 2014 [facility] [place] [facility] [address] [id number] [place] [address] 16 Jan, 2014 [facility] [place] [facility] [address] [id number] [place] [address] 15 Jan, 2014 [facility] [place] [facility] [address] [id number] [place] [address] 15 Jan, 2014 [facility] [place] [facility] [address] [id number] [place] [address] 09 Jan, 2014 [facility] [place] [facility] [address] [id number] [place] [address] Jan, [facility] [place] [facility] [address] [id number] [place] [address] Oct, [facility] [address] [id number], [place] [address] Oct, [facility] [place] [facility] [address] [id number], [place] [address] Aug, [facility] [address] [id number] [place] [address] Aug, [facility] [address] [id number][place] [id number] Aug, [facility] [place] [facility] [address] [id number], [place] [address] Aug, [facility] [place] [facility] [address] [id number], [place] [address] May, [facility] [place] [facility] [address] [id number], [place] [address] May, [facility] [place] [facility] [address] [id number] [place] [address] May, [facility] [place] [facility] [address] [id number] [place] [address] May, [facility] [place] [facility] [address] [id number] [address] May, [facility] [address] [id number] [address] May, [facility] [address] [address] Mar, [facility] [address] [id number] [address] Mar, [facility] [address], [place] [address] Aug, [facility] [address] [address] Dec, [facility] [address] [address] Apr, [facility] [address], [place] [address] Feb, IMMUNIZATIONS No Known Immunizations SOCIAL HISTORY Never Assessed REASON FOR VISIT EMR[place] [place] PLAN OF CARE VITAL SIGNS MEDICATIONS Medication Instructions Dosage Frequency Start Date End Date Duration Status Amoxicillin 500 mg 1 capsule by Oral route 3 times per day for 10 days Aug, Active Flonase 50 mcg/actuation 1 sprays by Nasal route 2 times per day in each nostril Aug, Active Triamcinolone Acetonide 0.1 % 1 Ointment by Topical route 2 times per day PRN apply thin layer to affected area BID,NO MORE THAN 5 DAYS Oct, Active RESULTS No Results PROCEDURES No Known procedures INSTRUCTIONS MEDICATIONS ADMINISTERED No Known Medications
--- OUTSIDE RECORDS SUMMARY | 2018-12-18 20:06 | XMS REPORT ---
Author Author Migration, Doctor Organization [facility] Address Unknown Phone Unavailable Care Team Providers Care Bank President Name Role Phone Migration, Doctor Unavailable Unavailable PROBLEMS Unknown Problems ALLERGIES No Information ENCOUNTERS Encounter Location Date Diagnosis [address] [id number] [place] [id number] Jan, Acute mucoid otitis media of right ear H65.111 and Allergic rhinitis, unspecified allergic rhinitis trigger, unspecified rhinitis seasonality J30.9 [facility] [address] [place] [address] [id number] [place] [id number] May, Allergic conjunctivitis H10.10 ; Post-nasal drip R09.82 and Rhinitis J31.0 [facility] [id number] [place] [address] Aug, [facility] [id number] [place] [address] Aug, [facility] [id number] [place] [address] Jun, [facility] [address]00565100[place], [place] [address] Jun, [facility] [id number] [place] [address] Feb, [facility] [id number] [place] [address] Feb, [facility] [id number] [place] [address] Jan, [facility] [id number] [place] [address] Jan, [facility] [id number] [place] [address] [place] [address] 16 Jan, 2014 [facility] [place] [facility] [address] [id number] [place] [address] 16 Jan, 2014 [facility] [place] [facility] [address] [id number] [place] [address] 15 Jan, 2014 [facility] [place] [facility] [address] [id number] [place] [address] 15 Jan, 2014 [facility] [place] [facility] [address] [id number] [place] [address] 09 Jan, 2014 [facility] [place] [facility] [address] [id number] [place] [address] Jan, [facility] [place] [facility] [address] [id number] [place] [address] Oct, [facility] [address] [id number], [place] [address] Oct, [facility] [place] [facility] [address] [id number], [place] [address] Aug, [facility] [address] [id number] [place] [address] Aug, [facility] [address] [id number][place] [id number] Aug, [facility] [place] [facility] [address] [id number], [place] [address] Aug, [facility] [place] [facility] [address] [id number], [place] [address] May, [facility] [place] [facility] [address] [id number], [place] [address] May, [facility] [place] [facility] [address] [id number] [place] [address] May, [facility] [place] [facility] [address] [id number] [place] [address] May, [facility] [place] [facility] [address], [place] [address] May, [facility] [address]00565100[place], [place] [address] May, [facility] [address]00565100[place], [place] [address] Mar, [facility] [address]100[place], [place] [address] Mar, [facility] [address]65100[place], [place] [address] Aug, [facility] [address]65100[place], [place] [address] Dec, [facility] [address]100[place], [place] [address] Apr, [facility] [address]100[place], [place] [address] Feb, IMMUNIZATIONS No Known Immunizations SOCIAL HISTORY Never Assessed REASON FOR VISIT EMR[place] [place] PLAN OF CARE VITAL SIGNS MEDICATIONS No Known Medications RESULTS No Results PROCEDURES Procedure Date Ordered Result Body Site TB INTRADERMAL TEST Feb 08, 2014 INSTRUCTIONS MEDICATIONS ADMINISTERED No Known Medications
--- OUTSIDE RECORDS SUMMARY | 2018-12-18 20:06 | XMS REPORT ---
Author Author Migration, Doctor Organization [facility] Address Unknown Phone Unavailable Care Team Providers Care Engineering And Scientific Programmer Name Role Phone Migration, Doctor Unavailable Unavailable PROBLEMS Unknown Problems ALLERGIES No Information ENCOUNTERS Encounter Location Date Diagnosis [address] [id number], [place] [id number] Jan, Acute mucoid otitis media of right ear H65.111 and Allergic rhinitis, unspecified allergic rhinitis trigger, unspecified rhinitis seasonality J30.[address] [facility] [place] [address] [place] [address] [id number][place] [id number] May, Allergic conjunctivitis H10.10 ; Post-nasal drip R09.82 and Rhinitis J31.0 [facility] [address] [place] [address] Aug, [facility] [id number] [place] [address] Aug, [facility] [id number] [place] [address] Jun, [facility] [address], [place] [address] Jun, [facility] [id number] [place] [address] Feb, [facility] [address] [place] [address] Feb, [facility] [id number] [place] [address] Jan, [facility] [address] [place] [address] Jan, [facility] [id number] [place] [address] [place] [address] 16 Jan, 2014 [facility] [place] [facility] [address] [id number] [place] [address] 16 Jan, 2014 [facility] [place] [facility] [address] [id number] [place] [address] 15 Jan, 2014 [facility] [place] [facility] [address] [id number] [place] [address] 15 Jan, 2014 [facility] [place] [facility] [address] [id number] [place] [address] 09 Jan, 2014 [facility] [place] [facility] [address] [id number] [place] [address] Jan, [facility] [place] [facility] [address] [id number] [place] [address] Oct, [facility] [address] [id number], [place] [address] Oct, [facility] [place] [facility] [address] [id number], [place] [address] Aug, [facility] [address] [id number] [place] [address] Aug, [facility] [address] [id number] [place] [id number] Aug, [facility] [place] [facility] [address] [id number], [place] [address] Aug, [facility] [place] [facility] [address] [id number], [place] [address] May, [facility] [place] [facility] [address] [id number], [place] [address] May, [facility] [place] [facility] [address] [id number] [place] [address] May, [facility] [place] [facility] [address] [id number] [place] [address] May, [facility] [place] [facility] [address] [id number] [address] May, [facility] [address], [place] [address] May, [facility] [address], [place] [address] Mar, [facility] [address], [place] [address] Mar, [facility] [address], [place] [address] Aug, [facility] [address], [place] [address] Dec, [facility] [address], [place] [address] Apr, [facility] [address], [place] [address] Feb, IMMUNIZATIONS No Known Immunizations SOCIAL HISTORY Never Assessed REASON FOR VISIT EMR-[facility] PLAN OF CARE VITAL SIGNS MEDICATIONS No Known Medications RESULTS No Results PROCEDURES Procedure Date Ordered Result Body Site TB INTRADERMAL TEST Feb 16, 2014 INSTRUCTIONS MEDICATIONS ADMINISTERED No Known Medications
--- OUTSIDE RECORDS SUMMARY | 2018-12-18 20:06 | XMS REPORT ---
Author Author Migration, Doctor Organization [facility] Address Unknown Phone Unavailable Care Team Providers Care Operators School Manager Name Role Phone Migration, Doctor Unavailable Unavailable PROBLEMS Unknown Problems ALLERGIES No Information ENCOUNTERS Encounter Location Date Diagnosis [address] [id number] [id number] Jan, Acute mucoid otitis media of right ear H65.111 and Allergic rhinitis, unspecified allergic rhinitis trigger, unspecified rhinitis seasonality J30.9 [facility] [address] [place] [address] [id number] [id number] May, Allergic conjunctivitis H10.10 ; Post-nasal drip R09.82 and Rhinitis J31.0 [facility] [id number] [place] [phone] Aug, [facility] [id number] [place] [phone] Aug, [facility] [id number] [place] [phone] Jun, [facility] [address], [place] [address] Jun, [facility] [id number] [place] [phone] Feb, [facility] [id number] [place] [phone] Feb, [facility] [id number] [place] [phone] Jan, [facility] [id number] [place] [phone] Jan, [facility] [id number] [place] [address] [place] [id number] 16 Jan, 2014 [facility] [place] [facility] [address] [id number] [place] [address] 16 Jan, 2014 [facility] [place] [facility] [address] [id number] [place] [address] 15 Jan, 2014 [facility] [place] [facility] [address] [id number] [place] [address] 15 Jan, 2014 [facility] [place] [facility] [address] [id number] [place] [address] 09 Jan, 2014 [facility] [place] [facility] [address] [id number] [place] [address] Jan, [facility] [place] [facility] [address] [id number] [place] [address] Oct, [facility] [address] [id number], [place] [address] Oct, [facility] [place] [facility] [address] [id number], [place] [address] Aug, [facility] [address] [id number] [place] [address] Aug, [facility] [address] [id number] [id number] Aug, [facility] [place] [facility] [address] [id number], [place] [address] Aug, [facility] [place] [facility] [address] [id number], [place] [address] May, [facility] [place] [facility] [address] [id number], [place] [address] May, [facility] [place] [facility] [address] [id number] [place] [address] May, [facility] [place] [facility] [address] [id number] [place] [address] May, [facility] [place] [facility] [address] [id number] [address] May, [facility] [address], [place] [address] May, [facility] [address], [place] [address] Mar, [facility] [address], [place] [address] Mar, [facility] [address], [place] [address] Aug, [facility] [address], [place] [address] Dec, [facility] [address], [place] [address] Apr, [facility] [address], [place] [address] Feb, IMMUNIZATIONS No Known Immunizations SOCIAL HISTORY Never Assessed REASON FOR VISIT PLAN OF CARE VITAL SIGNS MEDICATIONS No Known Medications RESULTS No Results PROCEDURES Procedure Date Ordered Result Body Site THER/PROPH/DIAG INJ, SC/IM Jul 07, 2014 Medroxyprogesterone inj Jul 07, 2014 URINE TEST Jul 07, 2014 INSTRUCTIONS MEDICATIONS ADMINISTERED No Known Medications
--- OUTSIDE RECORDS SUMMARY | 2018-12-18 20:07 | XMS REPORT | Continuity of Care Document ---
Author Organization Unknown Address Unknown Allergies There is no data. Medications There [...] HEPATITIS A VACCINE 04/26/2010 CATINA LIRIANO DO K V05.8 Need For Vaccination Human Papilloma Virus 04/26/2010 CATINA LIRIANO DO K V06.5 DT, TETANUS-DIPHTHERIA [Td] ,TDAP 04/26/2010 EATON MIXER DRIVER, MOHIT L V03.89 MENINGOCOCCAL VACCINE 04/26/2010 BELLA DE LA PAZNMOHIT L V05.3 HEPATITIS A VACCINE 04/26/2010 BELLA MIXER DRIVERMOHIT L V05.8 Need For Vaccination Human Papilloma Virus 04/26/2010 MOHIT BLANCO APRN L V06.5 DT, TETANUS-DIPHTHERIA [Td] ,TDAP 04/26/2010 TIA LIRIANO DOA K V03.89 MENINGOCOCCAL VACCINE 04/26/2010 CATINA LIRIANO DO K V05.3 HEPATITIS A VACCINE 04/26/2010 TIA LIRIANO DOA K V05.8 Need For Vaccination Human Papilloma Virus 04/26/2010 TIA LIRIANO DOA K V06.5 DT, TETANUS-DIPHTHERIA [Td] ,TDAP 04/26/2010 CATINA LIRIANO DO V03.89 MENINGOCOCCAL VACCINE 04/26/2010 CATINA LIRIANO DO V05.3 HEPATITIS A VACCINE 04/26/2010 CATINA LIRIANO DO K V05.8 Need For Vaccination Human Papilloma Virus 04/26/2010 CATINA LIRIANO DO V06.5 DT, TETANUS-DIPHTHERIA [Td] ,TDAP 04/26/2010 TIA LIRIANO DOA Victor Manuel V03.89 MENINGOCOCCAL VACCINE 04/26/2010 CATINA LIRIANO DO V05.3 HEPATITIS A VACCINE 04/26/2010 CATINA LIRIANO DO V05.8 Need For Vaccination Human Papilloma Virus 04/26/2010 TIA LIRIANO DOA K V06.5 DT, TETANUS-DIPHTHERIA [Td] ,TDAP 04/26/2010 V03.89 MENINGOCOCCAL VACCINE 04/26/2010 V05.3 HEPATITIS A VACCINE 04/26/2010 V05.8 Need For Vaccination Human Papilloma Virus 04/26/2010 V06.5 DT, TETANUS-DIPHTHERIA [Td] ,TDAP 04/26/2010 V03.89 MENINGOCOCCAL VACCINE 04/26/2010 V05.3 HEPATITIS A VACCINE 04/26/2010 V05.8 Need For Vaccination Human Papilloma Virus 04/26/2010 V06.5 DT, TETANUS-DIPHTHERIA [Td] ,TDAP 04/26/2010 TIA LIRIANO DOA K V03.89 MENINGOCOCCAL VACCINE 04/26/2010 CATINA LIRIANO DO V05.3 HEPATITIS A VACCINE 04/26/2010 CATINA LIRIANO DO K V05.8 Need For Vaccination Human Papilloma Virus 04/26/2010 TIA LIRIANO DOA Victor Manuel V06.5 DT, TETANUS-DIPHTHERIA [Td] ,TDAP 04/26/2010 CATINA LIRIANO DO V03.89 MENINGOCOCCAL VACCINE 04/26/2010 CATINA LIRIANO DO V05.3 HEPATITIS A VACCINE 04/26/2010 TIA LIRIANO DOA K V05.8 Need For Vaccination Human Papilloma Virus 04/26/2010 TIA LIRIANO DOA Victor Manuel V06.5 DT, TETANUS-DIPHTHERIA [Td] ,TDAP 10/24/2010 TIA LIRIANO DOA K V20.2 visit for: well child visit 10/24/2010 CATINA LIRIANO DO V20.2 visit for: well child visit 10/24/2010 MOHIT BLANCO APRN V20.2 visit for: well child visit 10/24/2010 CATINA LIRIANO DO V20.2 visit for: well child visit 10/24/2010 CATINA LIRIANO DO V20.2 visit for: well child visit 10/24/2010 CATINA LIRIANO DO V20.2 visit for: well child visit 10/24/2010 V20.2 visit for: well child visit 10/24/2010 V20.2 visit for: well child visit 10/24/2010 CATINA LIRIANO DO V20.2 visit for: well child visit 10/24/2010 CATINA LIRIANO DO V20.2 visit for: well child visit 01/12/2011 CATINA LIRIANO DO K 372.30 CONJUNCTIVITIS UNSPECIFIED 01/12/2011 TIA LIRIANO DOA K 372.30 CONJUNCTIVITIS UNSPECIFIED 01/12/2011 MOHIT BLANCO APRN 372.30 CONJUNCTIVITIS UNSPECIFIED 01/12/2011 TIA LIRIANO DOA K 372.30 CONJUNCTIVITIS UNSPECIFIED 01/12/2011 TIA LIRIANO DOA K 372.30 CONJUNCTIVITIS UNSPECIFIED 01/12/2011 TIA LIRIANO DOA K 372.30 CONJUNCTIVITIS UNSPECIFIED 01/12/2011 372.30 CONJUNCTIVITIS UNSPECIFIED 01/12/2011 372.30 CONJUNCTIVITIS UNSPECIFIED 01/12/2011 TIA LIRIANO DOA K 372.30 CONJUNCTIVITIS UNSPECIFIED 01/12/2011 TIA LIRIANO DOA K 372.30 CONJUNCTIVITIS UNSPECIFIED 09/18/2011 CATINA LIRIANO DO V25.02 CONTRACEPTION - ANY METHOD 09/18/2011 CATINA LIRIANO DO V65.45 STD COUNSELING 09/18/2011 CATINA LIRIANO DO K V25.02 CONTRACEPTION - ANY METHOD 09/18/2011 CATINA LIRIANO DO K V65.45 STD COUNSELING 09/18/2011 MOHIT BLANCO APRN V25.02 Contraceptives 09/18/2011 MOHIT BLANCO APRN V65.45 Anticipatory Guidance: Unsafe Sexual Practices 09/18/2011 CATINA LIRIANO DO K V25.02 Contraceptives 09/18/2011 TIA LIRIANO DOA K V65.45 Anticipatory Guidance: Unsafe Sexual Practices [...] CATINA LIRIANO DO K V25.02 Contraceptives 09/18/2011 TIA LIRIANO DOA K V65.45 Anticipatory Guidance: Unsafe Sexual Practices 06/17/2013 CATINA LIRIANO DO 461.9 SINUSITIS ACUTE 06/17/2013 MOHIT BLANCO APRN 461.9 SINUSITIS ACUTE 06/17/2013 CATINA LIRIANO DO K 461.9 SINUSITIS ACUTE 06/17/2013 CATINA LIRIANO DO K 461.9 SINUSITIS ACUTE 06/17/2013 TIA LIRIANO DOA K 461.9 SINUSITIS ACUTE 06/17/2013 461.9 SINUSITIS ACUTE 06/17/2013 461.9 SINUSITIS ACUTE 06/17/2013 CATINA LIRIANO DO K 461.9 SINUSITIS ACUTE 06/17/2013 LIRIANO TIA DREWA K 461.9 SINUSITIS ACUTE 06/25/2013 BELLA DE LA PAZN, MOHIT L V04.89 GARDASIL (HPV) DX 06/25/2013 CATINA LIRIANO DO V04.89 GARDASIL (HPV) DX 06/25/2013 CATINA LIRIANO DO V04.89 GARDASIL (HPV) DX 06/25/2013 LIRIANO CATINA DREW V04.89 GARDASIL (HPV) DX 06/25/2013 V04.89 GARDASIL (HPV) DX 06/25/2013 V04.89 GARDASIL (HPV) DX 06/25/2013 CATINA LIRIANO DO V04.89 GARDASIL (HPV) DX 06/25/2013 CATIAN LIRIANO DO V04.89 GARDASIL (HPV) DX 10/30/2013 CATINA LIRIANO DO 692.2 CONTACT DERMATITIS [...] Procedures Code [place] [address] TEST, URINE (IN-HOUSE) 06/25/2013 J1050 DEPO PROVERA 06/25/2013 59142 THERAPUTIC INJ SQ/IM 06/25/2013 11362 THERAPUTIC INJ SQ/IM 09/17/2013 J1050 DEPO PROVERA 09/17/2013 60445 TEST, URINE (IN-HOUSE) 09/17/2013 69955 STREP A (IN-HOUSE) 10/30/2013 07132 TB TEST INTRADERMAL 02/08/2014 32355 TB TEST INTRADERMAL 02/16/2014 86121 THERAPUTIC INJ SQ/IM 03/10/2014 J1050 DEPO PROVERA 03/10/2014 04850 TEST, URINE (IN-HOUSE) 03/10/2014 78758 THERAPUTIC INJ SQ/IM 07/07/2014 J1050 DEPO PROVERA 07/07/2014 90305 TEST, URINE (IN-HOUSE) 07/07/2014 Results There is no data. Encounters ACCT No. Visit Date/Time Discharge Status Pt. Type Provider Facility Loc./Unit Complaint [id number] 07/07/2014 15:14:00 07/07/2014 23:59:59 CLS Outpatient CATINA LIRIANO DO [id number] 03/10/2014 13:42:00 03/10/2014 23:59:59 CLS Outpatient CATINA LIRIANO DO [id number] 02/09/2014 14:10:00 02/09/2014 23:59:59 CLS Outpatient [id number] 02/02/2014 18:14:00 02/02/2014 23:59:59 CLS Outpatient [id number] 10/30/2013 08:16:00 10/30/2013 23:59:59 CLS Outpatient CATINA LIRIANO DO [id number] 09/17/2013 08:37:00 09/17/2013 23:59:59 CLS Outpatient CATINA LIRIANO DO [id number] 09/08/2013 10:10:00 09/08/2013 23:59:59 CLS Outpatient CATINA LIRIANO DO [id number] 06/25/2013 15:10:00 06/25/2013 23:59:59 CLS Outpatient BELLA DE LA PAZNMOHIT Aly [id number] 06/17/2013 09:46:00 06/17/2013 23:59:59 CLS Outpatient CATINA LIRIANO DO [id number] 04/07/2013 13:56:00 04/07/2013 23:59:59 CLS Outpatient CATINA LIRIANO DO
== END 2018-12-18 19:06 | disposition home or self-care (01) ==
LOC: EDUNIT# 18:39 → ER 18:41
DX: K02.9 Dental caries, unspecified (principal)
CPT/HCPCS: 99283

== ENCOUNTER 2021-12-31 02:57 | Observation (INO) | payer MEDICAID ==
[~2021-12-31] VITALS: Ht 157.5 cm; Wt 56.2 kg
[~2021-12-31 02:57] MED LIST changes: +AMOX500C2 PO
[2021-12-31 03:35] VITALS: BP 111/72
[2021-12-31 03:37] LABS: BILIRUBIN,URINE NEGATIVE (NEGATIVE); CLARITY,URINE SL CLOUDY; COLOR,URINE YELLOW; GLUCOSE, URINE (UA) NEGATIVE (NEGATIVE); KETONES,URINE TRACE (NEGATIVE); LEUKOCYTE ESTERASE ,URINE 3+ (NEGATIVE); NITRITE,URINE NEGATIVE (NEGATIVE); PH,URINE 6.5 (5-9); PROTEIN,URINE NEGATIVE (NEGATIVE)
[2021-12-31 03:42] VITALS: BP 111/72
[2021-12-31 03:48] LABS: BACTERIA,URINE LARGE /HPF; WBC,URINE 50-100 /HPF
[2021-12-31] MEDS ORDERED: D5 LR IV SOLUTION 1,000 ML IV ONE (04:01)
[2021-12-31] MEDS ORDERED: ceFAZolin INJECTION 1,000 MG ONE (04:14)
[2021-12-31] MEDS ORDERED: ACETAMINOPHEN 500 MG TAB (TYLENOL) PO PRN (04:15)
[2021-12-31] MEDS ORDERED: NS (IVPB) 50 ML ONE (04:15)
[2021-12-31] MEDS ORDERED: ONDANSETRON 4 MG/2 ML (SDV) Z0FRAN IVP PRN (04:15)
[2021-12-31] MEDS: D5 LR IV SOLUTION 1,000 ML IV SCH ×3 (04:21→18:19)
[2021-12-31] MEDS: ceFAZolin INJECTION 1,000 MG VIAL IV SCH ×4 (04:22→22:06)
[2021-12-31 04:26] LABS: BASOPHILS % (AUTO) 0 % (0-10); EOSINOPHILS % (AUTO) 0 % (0-10); HEMATOCRIT 33 % (35-52); HEMOGLOBIN 10.8 g/dL (11.5-16.0); LYMPHOCYTES # (AUTO) 2.6 10^3/uL (1.0-4.0); LYMPHOCYTES % (AUTO) 22 % (12-44); MEAN CORPUSCULAR HEMOGLOBIN 31 pg (25-34); MEAN CORPUSCULAR HGB CONC 33 g/dL (32-36); MEAN CORPUSCULAR VOLUME 92 fL (80-99); MEAN PLATELET VOLUME 10.3 fL (9.0-12.2); MONOCYTES # (AUTO) 0.7 10^3/uL (0.0-1.0); MONOCYTES % (AUTO) 6 % (0-12); NEUTROPHILS # (AUTO) 8.2 10^3/uL (1.8-7.8); NEUTROPHILS % (AUTO) 71 % (42-75); PLATELET COUNT 264 10^3/uL (130-400); WHITE BLOOD COUNT 11.6 10^3/uL (4.3-11.0)
[2021-12-31 06:10] VITALS: BP 113/78
[2021-12-31 08:30] VITALS: BP 100/55
--- NOTE | 2021-12-31 09:21 | History & Physical ---
History and Physical Date Seen by Provider: Dec 31, 2021 Time Seen by Provider: 09:16 This patient is a 26-year-old 2 para 1 female who presented after midnight last night with complaint of pelvic pain occasional abdominal tightening urinary frequency and pain in her vagina and rating up to her back. Patient denies rupture membranes or bleeding. She was having occasional contractions but did not feel that it was like when she was in labor with her first Evaluation included a UA which had 50 - 100 white cells and numerous bacteria. CBC showed a normal white count. Patient has been afebrile. She was having nausea with 1 episode of emesis that responded to Zofran Patient was admitted for observation. She is started on IV fluids and IV antibiotics with Ancef. She also has received Zofran and was allowed a regular diet. Sequential compression devices were ordered for her lower extremities for DVT prophylaxis. This morning patient reports feeling somewhat improved her vaginal pain is better. She still continues to feel some pressure and pain in her low back. She reports having occasional contractions.She reports that her nausea is significantly better We discussed management for pyelonephritis in , Which includes IV fluids pain medication and IV antibiotics. Plan at this point is to continue Current management today and golden and then Dr. Jacques will likely assume care of this patient. If Dr. Jacques is not available then I will continue her management Allergies are none Medications are vitamins Medical social and surgical history is are per the antepartum record HEENT exam is normal Neck is supple with no lymphadenopathy no thyromegaly Abdomen is gravid soft nontender nondistended There is slight suprapubic tenderness Patient has bilateral mild CVA tenderness Pelvic exam is deferred however admitting nurse reported patient was 1 to 2 cm dilated. Lab work is as follows Laboratory Tests Test 12/31/21 03:05 12/31/21 04:15 Range/Units Urine Color YELLOW Urine Clarity SL CLOUDY Urine pH 6.5 5-9 Urine Specific [place] 1.020 1.016-1.022 Urine Protein NEGATIVE NEGATIVE Urine Glucose (UA) NEGATIVE NEGATIVE Urine Ketones TRACE H NEGATIVE Urine Nitrite NEGATIVE NEGATIVE Urine Bilirubin NEGATIVE NEGATIVE Urine Urobilinogen 1.0 < = 1.0 MG/DL Urine Leukocyte Esterase 3+ H NEGATIVE Urine RBC (Auto) NEGATIVE NEGATIVE Urine RBC NONE /HPF Urine WBC 50-100 H /HPF Urine Squamous Epithelial Cells 2-5 /HPF Urine Crystals NONE /LPF Urine Bacteria LARGE H /HPF Urine Casts NONE /LPF Urine Mucus SMALL H /LPF Urine Culture Indicated YES White Blood Count 11.6 H 4.3-11.0 10^3/uL Red Blood Count 3.53 L 3.80-5.11 10^6/uL Hemoglobin 10.8 L 11.5-16.0 g/dL Hematocrit 33 L 35-52 % Mean Corpuscular Volume 92 80-99 fL Mean Corpuscular Hemoglobin 31 25-34 pg Mean Corpuscular Hemoglobin Concent 33 32-36 g/dL Red Cell Distribution Width 12.5 10.0-14.5 % Platelet Count 264 130-400 10^3/uL Mean Platelet Volume 10.3 9.0-12.2 fL Immature Granulocyte % (Auto) 0 % Neutrophils (%) (Auto) 71 42-75 % Lymphocytes (%) (Auto) 22 12-44 % Monocytes (%) (Auto) 6 0-12 % Eosinophils (%) (Auto) 0 0-10 % Basophils (%) (Auto) 0 0-10 % Neutrophils # (Auto) 8.2 H 1.8-7.8 10^3/uL Lymphocytes # (Auto) 2.6 1.0-4.0 10^3/uL Monocytes # (Auto) 0.7 0.0-1.0 10^3/uL Eosinophils # (Auto) 0.0 0.0-0.3 10^3/uL Basophils # (Auto) 0.0 0.0-0.1 10^3/uL Immature Granulocyte # (Auto) 0.1 0.0-0.1 10^3/uL monitor shows a category 1 tracing and rare contractions Assessment and plan 38 weeks gestation with early pyelonephritis. Patient is responding to hydration and IV antibiotics. We will continue the IV antibiotics and fluids and supportive care through the day and tonight. Patient will be reevaluated tomorrow for consideration of management options. 38 weeks with pyelonephritis Allergies and Home Medications Allergies Coded Allergies: No Known Drug Allergies (Unverified , 08/23/12) Patient Home Medication List Home Medication List Reviewed: Yes Amoxicillin (Amoxicillin) 500 Mg Capsule, 500 MG PO TID Prescribed by: NANCY BARRETT on 12/18/18 9098 Docusate Sodium (Docusate Sodium) 100 Mg Capsule, 100 MG PO BID PRN for CONSTIPATION-1ST LINE Prescribed by: MARIA FERNANDA JACQUES on 05/30/17832 Ferrous Sulfate (Ferrous Sulfate) 325 Mg Tablet, 325 MG PO DAILY@0800 Prescribed by: MARIA FERNANDA JACQUES on 05/30/17832 Hydrocodone Bit/Acetaminophen (Lortab 5 Mg Tablet) 1 Tab Tab, 1-2 TAB PO Q4H PRN for PAIN-MODERATE Prescribed by: MARIA FERNANDA JACQUES on 05/30/17832 Ibuprofen (Ibuprofen) 600 Mg Tablet, 600 MG PO Q6H Prescribed by: MARIA FERNANDA JACQUES on 05/30/17832 Trimethoprim/Sulfamethoxazole (Bactrim Ds) 1 Ea Tablet, 1 EA PO BID Prescribed by: FREDDIE MITCHELL on 08/23/12 1529 [Benzocaine/Menthol] 1 AEROSOL, 0 ML TP UD PRN for PAIN- SEE INSTRUCTIONS Prescribed by: MARIA FERNANDA JACQUES on 05/30/17832 JAYDEN ZAMUDIO MD Dec 31, 2021 09:21
[2021-12-31 16:24] VITALS: BP 108/65
[2021-12-31] MEDS ORDERED: WATER (STERILE) FOR INJECTION 0 ML ONE (22:03)
[2021-12-31 22:10] VITALS: BP 103/55
[2022-01-01] MEDS: D5 LR IV SOLUTION 1,000 ML IV SCH ×2 (01:07→07:51)
[2022-01-01 04:15] VITALS: BP 105/63
[2022-01-01] MEDS: ceFAZolin INJECTION 1,000 MG VIAL IV SCH ×2 (04:21→09:08)
[2022-01-01 07:20] VITALS: BP 117/59
--- NOTE | 2022-01-01 08:12 | Progress Note ---
Standard Progress Note Progress Notes/Assess & Plan Date Seen by a Provider: Jan 01, 2022 Time Seen by a Provider: 08:10 Progress/Assessment & Plan This patient is without complaint. She is ambulating, voiding, tolerating oral intake well. She has no pain she denies contractions she does feel baby moving. She reports feeling markedly better. Her pelvic pain and vaginal pain have resolved. Vital Signs Date Time Temp Pulse Resp B/P (MAP) Pulse Ox O2 Delivery O2 Flow Rate FiO2 01/01/22 04:15 36.1 70 16 105/63 (77) 100 Room Air 12/31/21 22:10 36.1 77 16 103/55 (71) 100 Room Air 12/31/21 16:24 36.2 87 18 108/65 (79) 98 Room Air 12/31/21 08:30 36.2 84 18 100/55 (70) 98 Room Air I & O 01/01/22 07:00 Intake Total 3000 ml Balance 3000 ml Vital signs are stable. Patient remains afebrile. The abdomen is benign. Fundus is nontender Extremities show no clubbing or cyanosis. There is no Homans' sign. Pelvic exam is deferred monitor shows category 1 heart rate tracing with no contractions Assessment and plan Hospital day 2 at 38 weeks gestation with pyelonephritis. Patient has responded well to IV Ancef and hydration. We will plan for discharge home with follow-up in clinic she will continue on antibiotics with change to Keflex 500 mg 4 times a day for 10 days Final Diagnosis Pyelonephritis at 38 weeks gestation JAYDEN ZAMUDIO MD Jan 01, 2022 08:12
[2022-01-01] MEDS ORDERED: CEPH500T PO (08:15)
--- NOTE | 2022-01-01 08:16 | Discharge Inst-Simple/Standard ---
Discharge Inst-Standard Discharge Medications New, Converted or Re-Newed RX: Transmitted to Pharmacy Patient Instructions/Follow Up Plan of Care/Instructions/FU: As directed Activity as Tolerated: Yes Discharge Diet: No Restrictions Return to The Hospital For: As directed Other Inst to Patient Follow-up with your primary care provider as scheduled JAYDEN ZAMUDIO MD Jan 01, 2022 08:16
== END 2022-01-01 09:45 | disposition home or self-care (01) ==
LOC: WSo 02:57 → LDRP 03:23 → WSo 04:13 → INTOOBSV 04:13 → LDRP 04:13 → UNDODISOB 01-01 09:45
PROVIDERS: ADMIT Obstetrics & Gynecology; ATTEND Obstetrics & Gynecology
DX: O23.03 Infections of kidney in pregnancy, third trimester (principal); Z3A.38 38 weeks gestation of pregnancy
CPT/HCPCS: 36415; 81000; 85025; 87088; 96361; 96374; 96376; G0378

== ENCOUNTER 2022-01-11 03:02 | Inpatient (IN) | payer MEDICAID ==
[2022-01-11] VITALS (41 sets, daily range): BP systolic 98–152; BP diastolic 57–86
[~2022-01-11] VITALS: Ht 157.5 cm; Wt 59.0 kg
[~2022-01-11 03:02] MED LIST changes: +CEPH500T PO
--- NOTE | 2022-01-11 05:54 | HISTORY AND PHYSICAL ---
DATE OF SERVICE: Covering for Dr. Jacques. CHIEF COMPLAINT: Contractions. HISTORY OF PRESENT ILLNESS: This is a 26-year-old 2, para 1 at 40 weeks' gestation, who presents to labor and delivery with complaints of painful contractions. He has not tried anything for her contractions and declines any pain currently. Positive movement. Denies leaking of fluid or vaginal bleeding. Denies dysuria, fevers, chills or back pain. She is completing antibiotic course for pyelonephritis. Denies nausea, vomiting, constipation or diarrhea. No other complaints. The patient denies watery or chunky discharge and denies any discharge with odor or pruritus. PAST OBSTETRIC HISTORY: Spontaneous vaginal delivery x1 at term. PAST MEDICAL HISTORY: Pyelonephritis as above. Otherwise, no complications outside of . PAST SURGICAL HISTORY: Denies. MEDICATIONS: vitamins and Keflex. ALLERGIES: Please review chart, no known drug allergies. SOCIAL HISTORY: Denies tobacco, alcohol or drug use. FAMILY HISTORY: Briefly reviewed and noncontributory. REVIEW OF SYSTEMS: Negative other than per HPI for 10 review systems. PHYSICAL EXAMINATION: GENERAL: Alert and oriented x3, in no acute distress, resting comfortably in the bed. VITAL SIGNS: Stable. She is afebrile. heart tones are category 1 and reactive. [place] is every 7 to 10 minutes, but palpate mild and the patient is able to talk to ____. CERVICAL: Unchanged per RN at 2 cm. CHEST: Nonlabored. ABDOMEN: Gravid, nontender. EXTREMITIES: Nontender. ASSESSMENT: G2, P1 at 40 weeks' gestation with non-labor contractions. PLAN: Counseled the patient that she is not in active labor and that she can continue expectant management. While the patient states she does not want to do an induction, she also does not want to go home out of fear of not being able to get her epidural. She went within 30 minutes out of hospital and has not discussed elective induction with Dr. Jacques. Counseled the patient that we will review the induction schedule as well as wait for Dr. Jacques to come on to inquire about possible induction today. Briefly reviewed risks of induction and anticipate transferring care to Dr. Jacques later this morning. Job ID: [id number] DocumentID: [id number] Dictated Date: 01/11/2022 04:46:22 Strategies Analyst Date: 01/11/2022 05:19:42 Dictated By: Maribel Hodge MD
[2022-01-11] MEDS ORDERED: LIDOCAINE/EPI 2% 1:200,00 (XYLOCAINE) 10 ML VIAL INJ PRN (07:30)
[2022-01-11] MEDS ORDERED: D5 LR IV SOLUTION 1,000 ML IV SCH (07:30)
[2022-01-11] MEDS ORDERED: OXYTOCIN PRE-MIX DRIP 500 ML IV SCH (07:30)
[2022-01-11 08:25] LABS: BASOPHILS % (AUTO) 0 % (0-10); EOSINOPHILS # (AUTO) 0.1 10^3/uL (0.0-0.3); EOSINOPHILS % (AUTO) 1 % (0-10); HEMATOCRIT 33 % (35-52); HEMOGLOBIN 10.8 g/dL (11.5-16.0); LYMPHOCYTES # (AUTO) 2.5 10^3/uL (1.0-4.0); LYMPHOCYTES % (AUTO) 26 % (12-44); MEAN CORPUSCULAR HEMOGLOBIN 31 pg (25-34); MEAN CORPUSCULAR HGB CONC 33 g/dL (32-36); MEAN CORPUSCULAR VOLUME 93 fL (80-99); MEAN PLATELET VOLUME 10.4 fL (9.0-12.2); MONOCYTES # (AUTO) 0.6 10^3/uL (0.0-1.0); MONOCYTES % (AUTO) 6 % (0-12); NEUTROPHILS # (AUTO) 6.3 10^3/uL (1.8-7.8); NEUTROPHILS % (AUTO) 66 % (42-75); PLATELET COUNT 283 10^3/uL (130-400); WHITE BLOOD COUNT 9.6 10^3/uL (4.3-11.0)
[2022-01-11] MEDS ORDERED: fentaNYL 2 mcg/ml BUPIVA 0.125 100 ML ONE (09:02)
[2022-01-11] MEDS ORDERED: fentaNYL INJ 100 MCG/2 ML AMP ONE (09:48)
[2022-01-11] MEDS ORDERED: diphenhydrAMINE 50 MG/ML INJ (BENADRYL) IV PRN (10:30)
[2022-01-11] MEDS ORDERED: fentaNYL 2 mcg/ml BUPIVA 0.125 100 ML EPI SCH (10:30)
[2022-01-11] MEDS ORDERED: ONDANSETRON 4 MG/2 ML (SDV) Z0FRAN IV PRN (10:30)
[2022-01-11] MEDS ORDERED: METOCLOPRAMIDE INJ 10 MG/2 ML (REGLAN) IV PRN (10:30)
[2022-01-11] MEDS ORDERED: NALOXONE 0.4 MG/ML 1 ML (NARCAN) VIAL IV PRN ×3 (10:30→13:45)
[2022-01-11] MEDS ORDERED: LACTATED RINGERS 1,000 ML IV ONE (10:30)
--- NOTE | 2022-01-11 13:31 | OB Labor & Delivery Record ---
L&D History Date of Service Date of Service: Jan 11, 2022 History Expected Date of Delivery: Jan 11, 2022 Gestational Age in Weeks: 40 Hx : 2 Hx Para: 1 Complications Events: Routine care Operative Indications (Cesarea: N/A-Vaginal Delivery Intrapartal Events: None L&D Stage1 Stage One Onset of Labor - Date: Jan 11, 2022 Monitors and Tracing Monitor Mode: External Heart Rate: 130 Monitor Decelerations: None Station: 0 Mcfp Variability: Average (6-10) Short Term Variability: Present Presentation: Vertex Vital Signs VS - Last 72 Hours, by Label 01/11/22 01/11/22 01/11/22 01/11/22 03:25 03:37 07:30 08:40 Temp 36.5 36.5 36.3 Pulse 97 97 73 87 Resp 18 18 20 B/P (MAP) 111/72 (85) 123/75 (91) Pulse Ox 98 98 O2 Delivery Room Air Room Air 01/11/22 01/11/22 01/11/22 01/11/22 08:55 09:10 09:25 09:40 Pulse 73 83 93 93 Resp 20 B/P (MAP) 125/80 (95) 116/76 (89) 123/82 (96) 131/86 (101) Pulse Ox 100 99 01/11/22 01/11/22 01/11/22 01/11/22 09:43 09:46 09:49 09:52 Pulse 82 94 106 127 B/P (MAP) 126/82 (97) 114/81 (92) 117/84 (95) 106/75 (85) Pulse Ox 99 97 100 99 01/11/22 01/11/22 01/11/22 01/11/22 09:55 09:58 10:01 10:04 Pulse 106 125 90 111 B/P (MAP) 110/82 (91) 104/58 (73) 112/66 (81) 98/59 (72) Pulse Ox 98 99 98 98 01/11/22 01/11/22 01/11/22 01/11/22 10:07 10:10 10:13 10:16 Pulse 97 93 82 90 B/P (MAP) 100/61 (74) 110/67 (81) 114/66 (82) 106/59 (75) Pulse Ox 97 97 98 98 01/11/22 01/11/22 01/11/22 01/11/22 10:19 10:22 10:25 10:45 Pulse 98 82 74 82 B/P (MAP) 118/74 (89) 114/68 (83) 111/70 (84) 113/70 (84) Pulse Ox 98 98 98 99 01/11/22 01/11/22 01/11/22 11:00 11:15 11:30 Temp 36.1 Pulse 70 75 64 B/P (MAP) 108/65 (79) 116/57 (76) 110/58 (75) Pulse Ox 99 99 98 Rupture of Membranes Spontaneous Ruture of Membrane: No Amniotic Membrane Rupture Time: 826 Amniotic Membrane Fluid Desc.: Clear Vaginal Bleeding Description: Normal Show Induction/Anesthesia Epidural Cath Placement - Time: 935 Progress/Notes Patient admitted by Dr. Hodge for early labor. AROM performed this AM and Pitocin started, she progressed rapidly after an epidural was placed to complete and + 2 station. L&D Stage2 Stage Two Stage II Date: Jan 11, 2022 Monitors and Tracing Monitor Mode: External Heart Rate: 130 Monitor Decelerations: Variable Mcfp Variability: Average (6-10) Position: Right Occiput Anterior Presentation: Vertex Cord Descript/Complications Cord Vessel Description: 3 Vessels Complications nuchal cord reduced x 1 Delivery Type Infant Delivery Method: Spontaneous Vaginal Anterior Shoulder: Left Episiotomy/Perineal Laceration Episiotomy Description: Perineal Extension/lac, 2nd degree Degree (describe repair) pernieal laceration repaired using 3-0 and 2-0 rapid in usual fashion Condition of Delivery 1 minute Comment: 9 5 minute Comment: 9 Notes Live male weight pending Condition of Condition of Infant: Living Exam: No Observed Abnormalities Resuscitation Resuscitation: N/A - Spontaneous Resp L&D Stage3 Stage Three Stage III Date: Jan 11, 2022 Pictocin Pitocin Administration mu/min: 4 Pitocin ml/hr: 4 Pitocin Administration Comment: 30 mu wide open after delivery of placenta Placenta Delivery Placenta Delivery: Spontaneous Delivery Summary Summary Estimated blood loss (mL): 350 Attending at delivery: Maria Fernanda Jacques DO Condition of Delivery Examined: Cervix Examined, Uterus Explored Post Hemorrhage: No Condition of Mother stable Condition of (s) stable FENECH,MARIA FERNANDA S DO Jan 11, 2022 1:31 pm
--- NOTE | 2022-01-11 13:34 | Discharge Inst-Women's Service ---
Discharge Inst-Women's Serv Depart Medication/Instructions New, Converted or Re-Newed RX: Transmitted to Pharmacy Final Diagnosis PPD 1 NVD Problems Reviewed?: Yes Consults/Follow Up Additional Follow Up: Yes Orders/Referrals Dr. Blair in 6 weeks Activity Activity: Activity as Tolerated Driving Instructions: No Driving for 1 Week NO SMOKING: NO SMOKING Nothing Inside Vagina: No Douching, No [place], No Tampons Diet Discharge Diet: No Restrictions Symptoms to Report to : Bleeding Excessive, Pain Increased, Fever Over 101 Degrees F, Vaginal Bleeding Increase, Questions/Concerns For Any Problems or Questions: Contact Your Physician MARIA FERNANDA BLAIR DO Jan 11, 2022 1:34 pm
[2022-01-11] MEDS ORDERED: DIBU30OI TOP (13:36)
[2022-01-11] MEDS ORDERED: FERR325T24 PO (13:36)
[2022-01-11] MEDS ORDERED: IBUP-844 PO (13:36)
[2022-01-11] MEDS ORDERED: BENZ78AE5 TP (13:36)
[2022-01-11] MEDS ORDERED: ACHD5005 PO (13:36)
[2022-01-11] MEDS ORDERED: DOCU100C37 PO (13:36)
[2022-01-11] MEDS: OXYTOCIN PRE-MIX DRIP 500 ML IV SCH ×2 (13:40→18:37)
[2022-01-11] MEDS ORDERED: TETANUS,DIPTH,PERTUSS P/F (BOOSTRIX) 0.5 ML VIAL IM ONE (13:45)
[2022-01-11] MEDS ORDERED: DIBUCAINE 1% OINTMENT 30 GM TUBE TOP PRN (13:45)
[2022-01-11] MEDS ORDERED: WITCH HAZEL(TUCKS) 40 EA JAR TOP PRN (13:45)
[2022-01-11] MEDS ORDERED: MEASLES,MUMPS,RUBELLA 1 EA INJ SQ ONE (13:45)
[2022-01-11] MEDS ORDERED: HYDROcodone/APAP 5 MG/325 MG (LORTAB) TAB PO PRN (13:45)
[2022-01-11] MEDS ORDERED: BENZOCAINE/MENTHOL (DERMOPLAST) 56 ML CAN TP PRN (13:45)
[2022-01-11] MEDS ORDERED: CATHETER FLUSH 10 ML SYR IV SCH ×2 (14:00)
[2022-01-11] MEDS: IBUPROFEN 600 MG (MOTRIN) TAB PO SCH ×2 (16:10→21:50)
[2022-01-11] MEDS: DOCUSATE SODIUM 100 MG (COLACE) CAP PO SCH (21:49)
[2022-01-12 02:15] VITALS: BP 113/60
[2022-01-12] MEDS: IBUPROFEN 600 MG (MOTRIN) TAB PO SCH ×3 (03:58→16:14)
--- NOTE | 2022-01-12 05:33 | Postpartum Progress Note ---
Note Note Day # 1 Subjective: Patient is without complaints. Ambulating, voiding. Tolerating a regular diet without nausea or vomiting. Normal lochia. Pain is well controlled with oral pain medications. Objective: Physical Exam: General - Alert and oriented, no apparent distress Abdomen - Soft, appropriately tender to palpation, non-distended, fundus firm at umbilicus Extremities - no edema, negative Andrea's bilaterally Assessment: PPD 1 NVD Labs pending Plan: Routine care. Encourage breast feeding. Encourage ambulation. Ferrous sulfate supplementation. Plan for discharge today Vitals - Labs Vital Signs - I&O Vital Signs Date Time Temp Pulse Resp B/P (MAP) Pulse Ox O2 Delivery O2 Flow Rate FiO2 01/12/22 02:15 36.9 79 18 113/60 (77) 98 Room Air 01/11/22 21:54 36.3 89 18 110/65 (80) 98 Room Air 01/11/22 17:24 36.2 76 114/59 (77) 01/11/22 15:12 71 104/60 (75) 01/11/22 14:57 36.1 88 99/62 (74) 01/11/22 14:43 76 103/57 (72) 01/11/22 14:13 73 106/61 (76) 01/11/22 13:58 75 113/59 (77) 01/11/22 13:28 36.0 90 116/67 (83) 01/11/22 13:13 93 152/70 (97) 01/11/22 13:00 85 148/76 (100) 01/11/22 12:45 82 118/69 (85) 01/11/22 12:30 73 116/71 (86) 01/11/22 12:15 75 113/70 (84) 01/11/22 12:00 72 110/58 (75) 01/11/22 11:30 64 110/58 (75) 98 01/11/22 11:15 36.1 75 116/57 (76) 99 01/11/22 11:00 70 108/65 (79) 99 01/11/22 10:45 82 113/70 (84) 99 01/11/22 10:25 74 111/70 (84) 98 01/11/22 10:22 82 114/68 (83) 98 01/11/22 10:19 98 118/74 (89) 98 01/11/22 10:16 90 106/59 (75) 98 01/11/22 10:13 82 114/66 (82) 98 01/11/22 10:10 93 110/67 (81) 97 01/11/22 10:07 97 100/61 (74) 97 01/11/22 10:04 111 98/59 (72) 98 01/11/22 10:01 90 112/66 (81) 98 01/11/22 09:58 125 104/58 (73) 99 01/11/22 09:55 106 110/82 (91) 98 01/11/22 09:52 127 106/75 (85) 99 01/11/22 09:49 106 117/84 (95) 100 01/11/22 09:46 94 114/81 (92) 97 01/11/22 09:43 82 126/82 (97) 99 01/11/22 09:40 93 131/86 (101) 99 01/11/22 09:25 93 20 123/82 (96) 100 01/11/22 09:10 83 116/76 (89) 01/11/22 08:55 73 125/80 (95) 01/11/22 08:40 87 123/75 (91) 01/11/22 07:30 36.3 73 20 111/72 (85) I & O 01/12/22 07:00 Intake Total 2540 ml Balance 2540 ml Labs Laboratory Tests 01/11/22 08:15: White Blood Count 9.6, Red Blood Count 3.53L, Hemoglobin 10.8L, Hematocrit 33L, Mean Corpuscular Volume 93, Mean Corpuscular Hemoglobin 31, Mean Corpuscular Hemoglobin Concent 33, Red Cell Distribution Width 12.3, Platelet Count 283, Mean Platelet Volume 10.4, Immature Granulocyte % (Auto) 1, Neutrophils (%) (Auto) 66, Lymphocytes (%) (Auto) 26, Monocytes (%) (Auto) 6, Eosinophils (%) (Auto) 1, Basophils (%) (Auto) 0, Neutrophils # (Auto) 6.3, Lymphocytes # (Auto) 2.5, Monocytes # (Auto) 0.6, Eosinophils # (Auto) 0.1, Basophils # (Auto) 0.0, Immature Granulocyte # (Auto) 0.1 MARIA FERNANDA BLAIR DO Jan 12, 2022 05:33
[2022-01-12 05:59] LABS: BASOPHILS % (AUTO) 0 % (0-10); EOSINOPHILS # (AUTO) 0.1 10^3/uL (0.0-0.3); EOSINOPHILS % (AUTO) 1 % (0-10); HEMATOCRIT 35 % (35-52); HEMOGLOBIN 11.5 g/dL (11.5-16.0); LYMPHOCYTES # (AUTO) 2.3 10^3/uL (1.0-4.0); LYMPHOCYTES % (AUTO) 20 % (12-44); MEAN CORPUSCULAR HEMOGLOBIN 31 pg (25-34); MEAN CORPUSCULAR HGB CONC 33 g/dL (32-36); MEAN CORPUSCULAR VOLUME 94 fL (80-99); MEAN PLATELET VOLUME 10.4 fL (9.0-12.2); MONOCYTES # (AUTO) 0.6 10^3/uL (0.0-1.0); MONOCYTES % (AUTO) 5 % (0-12); NEUTROPHILS # (AUTO) 8.6 10^3/uL (1.8-7.8); NEUTROPHILS % (AUTO) 73 % (42-75); PLATELET COUNT 237 10^3/uL (130-400); WHITE BLOOD COUNT 11.8 10^3/uL (4.3-11.0)
[2022-01-12 06:20] VITALS: BP 111/57
[2022-01-12] MEDS ORDERED: PRENATAL VITAMIN 1 EA TAB PO SCH (07:00)
[2022-01-12] MEDS: DOCUSATE SODIUM 100 MG (COLACE) CAP PO SCH (07:34)
[2022-01-12 07:38] VITALS: BP 113/58
[2022-01-12] MEDS ORDERED: FERROUS SULF 325 MG (IRON) TAB PO SCH (09:00)
[2022-01-12 13:30] VITALS: BP 112/64
--- NOTE | 2022-01-12 13:40 | Anesthesia-General Post-Op ---
General Patient Condition Mental Status/LOC: Same as Preop Cardiovascular: Satisfactory Nausea/Vomiting: Absent Respiratory: Satisfactory Pain: Controlled Complications: Absent Post Op Complications Complications None Follow Up Care/Instructions Patient Instructions None needed. Anesthesia/Patient Condition Patient Condition Patient is doing well, no complaints, stable vital signs, no apparent adverse anesthesia problems. No complications reported per nursing. YASMINE BENSON CRNA Jan 12, 2022 13:40
[2022-01-12 18:35] VITALS: BP 112/64
== END 2022-01-12 18:48 | disposition home or self-care (01) | DRG 807 ==
LOC: WSo 03:02 → LDRP 03:03 → WSo 07:22 → LDRP 17:00
PROVIDERS: ADMIT Obstetrics & Gynecology; ATTEND Obstetrics & Gynecology
PROC: 10E0XZZ Delivery of Products of Conception, External Approach (ICD-10-PCS; principal; 2022-01-11)
PROC: 0KQM0ZZ Repair Perineum Muscle, Open Approach (ICD-10-PCS; 2022-01-11)
PROC: 10907ZC Drainage of Amniotic Fluid, Therapeutic from Products of Conception, Via Natural or Artificial Opening (ICD-10-PCS; 2022-01-11)
PROC: 3E033VJ Introduction of Other Hormone into Peripheral Vein, Percutaneous Approach (ICD-10-PCS; 2022-01-11)
DX: O69.81X0 Labor and delivery complicated by cord around neck, without compression, not applicable or unspecified (principal); Z37.0 Single live birth; Z3A.40 40 weeks gestation of pregnancy; O70.1 Second degree perineal laceration during delivery
CPT/HCPCS: 36415; 85025; 86850; 86900; 86901; 99212

== ENCOUNTER 2022-10-03 13:42 | Emergency (ER) | payer MEDICAID ==
[~2022-10-03] VITALS: Ht 157.5 cm; Wt 53.0 kg
[~2022-10-03 13:42] MED LIST changes: +BENZ78AE5 TP; +DIBU30OI TOP; +FERR325T24 PO; +IBUP-844 PO
[2022-10-03 14:09] VITALS: BP 119/81
--- NOTE | 2022-10-03 14:38 | ED EENT ---
History of Present Illness General Chief Complaint: Dental Problems/Pain Stated Complaint: BROKEN TOOTH | SWOLLEN JAW Source: patient Exam Limitations: no limitations History of Present Illness Date Seen by Provider: October 03, 2022 Time Seen by Provider: 14:32 Initial Comments Patient is a 27-year-old female who presents to the emergency room with a chief complaint of right-sided lower dental pain and jaw swelling. She states it started about a week and a half ago on Saturday. She said her mother h ad some leftover clindamycin and she took it once daily for about 6 days. She states her pain got better but then yesterday recurred. She denies any fevers or chills. She has been having dental pain with chewing therefore has not been eating very much. She did take 1500 mg of Tylenol earlier today which helped her pain. No headache, URI symptoms. No nausea, vomiting or diarrhea. No allergies to medications. Has a dental appointment scheduled for October 17. Timing/Duration: gradual Location: dental Prearrival Treatment: over the counter meds (tylenol), prescription meds (clindamycin) Associated Symptoms: facial pain/swelling Allergies and Home Medications Allergies Coded Allergies: No Known Drug Allergies (Unverified , 08/23/12) Patient Home Medication List Home Medication List Reviewed: Yes Benzocaine/Menthol (Dermoplast Pain Relieving [place]) 20 %-0.5 % Aerosol, 56 EA TP UD PRN for PAIN- SEE INSTRUCTIONS Prescribed by: MARIA FERNANDA BLAIR on 01/11/22 1336 Dibucaine (Dibucaine) 1 % Oint, 1 GM TOP UD PRN for PAIN- SEE INSTRUCTIONS Prescribed by: MARIA FERNANDA BLAIR on 01/11/22 1336 Docusate Sodium (Docusate Sodium) 100 Mg Capsule, 100 MG PO BID PRN for CONSTIPATION-1ST LINE Prescribed by: MARIA FERNANDA BLAIR on 01/11/22 1336 Ferrous Sulfate (Ferosul) 325 Mg (65 Mg Iron) Tablet, 325 MG PO DAILY Prescribed by: MARIA FERNANDA BLAIR on 01/11/22 1336 Hydrocodone Bit/Acetaminophen (HYDROcodone/APAP 5 MG/325 MG TAB) 1 Tab Tab, 1 EA PO Q4H PRN for PAIN-MODERATE (5-7) Prescribed by: MARIA FERNANDA BLAIR on 01/11/22 1336 Ibuprofen (Ibu) 600 Mg Tablet, 600 MG PO Q6H Prescribed by: MARIA FERNANDA BLAIR on 01/11/22 1336 [Benzocaine/Menthol] 1 AEROSOL, 0 ML TP UD PRN for PAIN- SEE INSTRUCTIONS Prescribed by: MARIA FERNANDA BLAIR on 05/30/17 0833 Review of Systems Review of Systems Constitutional: see HPI Ears: No Symptoms Reported Nose: no symptoms reported Mouth: pain (dental pain) Throat: no symptoms reported Respiratory: no symptoms reported Cardiovascular: no symptoms reported Gastrointestinal: no symptoms reported Past Nuozsno-Ridixm-Bnkqzt Hx Patient Social History Tobacco Use?: No Use of E-Cig and/or Vaping dev: No Substance use?: No Alcohol Use?: No Pt feels they are or have been: No Immunizations Up To Date Tetanus Booster (TDap): Less than 5yrs Influenza Vaccine Up-to-Date: Yes; Up-to-Date Seasonal Allergies Seasonal Allergies: No Past Medical History Surgery/Hospitalization HX: DENIES Surgeries: No Respiratory: No Cardiac: No Neurological: No Genitourinary: No Gastrointestinal: No Musculoskeletal: No Endocrine: No HEENT: No Cancer: No Psychosocial: No Integumentary: No Blood Disorders: No Adverse Reaction/Blood Tranf: No Family Medical History Patient reports no known family medical history. Physical Exam Height, Weight, BMI Height: 5'1.00" Weight: 130lbs. 0oz. [id number]; 23.78 BMI Method:Stated General Appearance: WD/WN, no apparent distress Eyes: bilateral eye normal inspection, bilateral eye PERRL, bilateral eye EOMI Nose: normal inspection Mouth/Throat: pharynx normal, dental tenderness, mandibular swelling, other (gingivitis right lower #29 tooth; no fluctuance, no drainage. +percussive tenderness) Respiratory: no respiratory distress, no accessory muscle use Neurologic/Psychiatric: alert, normal mood/affect, oriented x 3 Skin: normal color, warm/dry Departure Impression Primary Impression: Tooth abscess Disposition: 01 HOME, SELF-CARE Condition: Stable Departure-Patient Inst. Decision time for Depature: 14:41 Referrals: MARIA FERNANDA BLAIR DO (PCP/Family) Primary Care Physician Patient Instructions: Tooth Abscess ED Add. Discharge Instructions: Be sure and brush at least twice daily. Use a good oral rinse such as Listerine daily. Take the antibiotics, penicillin VK 500 mg 4 times a day for the next 10 days. Finish the entire course of antibiotics. You need to use a barrier form of control (condoms) while on penicillin- based antibiotics as they can affect oral control. Gesu-onl-ejufzlh ibuprofen 3 tablets which is 600 mg every 6 hours as needed for pain. Always take ibuprofen with food. Do not exceed 2 extra strength Tylenol every 6 hours. If you develop redness over your jaw with increasing swelling, fever over 100.4 please return to the emergency room for reevaluation. Scripts Penicillin V Potassium (Penicillin V Potassium) 500 Mg Tablet 500 MG PO QID for 10 Days, #40 TAB Prov: PHI HAILE MD 10/03/22 Images Mouth/Nose 1 - Fracture Tooth, Tenderness PHI HAILE MD October 03, 2022 14:38
[2022-10-03] MEDS ORDERED: PENI500T PO (14:43)
== END 2022-10-03 14:54 | disposition home or self-care (01) ==
LOC: EDUNIT# 13:42 → ER 13:45
DX: S02.5XXA Fracture of tooth (traumatic), initial encounter for closed fracture (principal); K04.7 Periapical abscess without sinus; Z28.310 Unvaccinated for COVID-19; X58.XXXA Exposure to other specified factors, initial encounter
CPT/HCPCS: 99281